=== PATIENT | female | born 1950 | race Caucasian/White ===

== ENCOUNTER 2016-05-15 18:15 | Inpatient (IN) | payer MEDICARE ==
[2016-05-15] MEDS ORDERED: SODIUM CHLORIDE 0.9% 1,000 ML IV STA ×2 (18:23)
[2016-05-15] MEDS ORDERED: SODIUM CHLORIDE 0.9% 500 ML IV STA (18:23)
[2016-05-15] MEDS ORDERED: ASPIRIN 325 MG TAB PO STA (18:45)
--- NOTE | 2016-05-15 18:47 | ED ---
General Adult HPI - General Chief complaint: Neuro Symptoms/Deficit Stated complaint: poss cva Time Seen by Provider: 05/15/16 18:23 Source: patient, RN notes reviewed, old records reviewed Mode of arrival: ambulatory Limitations: no limitations - History of Present Illness Initial comments: This is a 66-year-old female here for evaluation of possible CVA versus TIA. Patient has medical history consistent for backtracks, no prior history of known CVA. Patient states prior to arrival she had onset of right-sided slurred speech and right arm weakness that did resolve was about 2 hours prior to arrival. Symptoms did resolve after and did not last for to long. Patient denies any trauma, no fevers. No other neurological complaints - Related Data Home Medications Medication Instructions Recorded Confirmed Acetaminophen-Codeine 300-30mg 1 tab PO Q4-6H PRN 05/15/16 05/15/16 [Tylenol w/codeine #3] Ascorbic Acid [Vitamin C] 500 mg PO DAILY 05/15/16 05/15/16 Calcium Carbonate/Vitamin D3 1 tab PO BID 05/15/16 05/15/16 [Calcium 500-Vit D3 600 Tablet] Clindamycin Topical Soln 1 applic TOPICAL BID PRN 05/15/16 05/15/16 [Cleocin-T Topical Soln] DULoxetine HCL [Cymbalta] 60 mg PO DAILY 05/15/16 05/15/16 Fluocinonide 0.05% [Lidex 0.05% 1 applic TOPICAL DAILY PRN 05/15/16 05/15/16 cream] HYDROcodone/APAP 5-325MG [[place] 1 tab PO Q6H PRN 05/15/16 05/15/16 5-325] Insulin Glargine,Hum.rec.anlog 72 unit SQ HS 05/15/16 05/15/16 [Lantus Solostar] Insulin Lispro [humaLOG Kwikpen] 10 unit SQ AC-TID 05/15/16 05/15/16 LORazepam [Ativan] 0.5 mg PO TID PRN 05/15/16 05/15/16 Lisinopril [Zestril] 20 mg PO BID 05/15/16 05/15/16 Multivitamins, Thera [Multivitamin] 1 tab PO DAILY 05/15/16 05/15/16 [place]-3 Fatty Acids [[place]-3] 1,000 mg PO DAILY 05/15/16 05/15/16 Zolpidem Tartrate [Ambien Cr] 12.5 mg PO HS PRN 05/15/16 05/15/16 metFORMIN HCL [Glucophage] 500 mg PO BID 05/15/16 05/15/16 Non-Formulary Drug [Non Formulary 1,700 units IV WEEKLY PRN 05/17/16 05/17/16 Drug] Previous Rx's Medication Instructions Recorded Aspirin [Adult Low Dose Aspirin EC] 81 mg PO DAILY #90 tablet. 05/18/16 Allergies Allergy/AdvReac Type Severity Reaction Status Date / Time amlodipine besylate Allergy Unknown Verified 05/15/16 18:28 [From Norvasc] erythromycin base Allergy Unknown Verified 05/15/16 18:28 guaifenesin Allergy Unknown Verified 05/15/16 18:28 latex Allergy Unknown Verified 05/15/16 18:28 levofloxacin [From Levaquin] Allergy Unknown Verified 05/15/16 18:28 Review of Systems ROS Statement: Those systems with pertinent positive or pertinent negative responses have been documented in the HPI. ROS Other: All systems not noted in ROS Statement are negative. Past Medical History Past Medical History: Cancer, Diabetes Mellitus, Hypertension Additional Past Medical History / Comment(s): prurigo nodularus, skin cancer, Factor X History of Any Multi-Drug Resistant Organisms: None Reported Past Surgical History: Hysterectomy Additional Past Surgical History / Comment(s): power port Past Psychological History: Anxiety, Depression Smoking Status: Never smoker Past Alcohol Use History: None Reported Past Drug Use History: None Reported General Exam - General Exam Comments Initial Comments: NIH of 0 Limitations: no limitations General appearance: alert, in no apparent distress Head exam: Present: atraumatic, normocephalic, normal inspection Eye exam: Present: normal appearance, PERRL, EOMI. Absent: scleral icterus, conjunctival injection, periorbital swelling ENT exam: Present: normal exam, mucous membranes moist Neck exam: Present: normal inspection. Absent: tenderness, meningismus, lymphadenopathy Respiratory exam: Present: normal lung sounds bilaterally. Absent: respiratory distress, wheezes, rales, rhonchi, stridor Cardiovascular Exam: Present: regular rate, normal rhythm, normal heart sounds. Absent: systolic murmur, diastolic murmur, rubs, gallop, clicks GI/Abdominal exam: Present: soft, normal bowel sounds. Absent: distended, tenderness, guarding, rebound, rigid Extremities exam: Present: normal inspection, full ROM, normal capillary refill. Absent: tenderness, pedal edema, joint swelling, calf tenderness Back exam: Present: normal inspection Neurological exam: Present: alert, oriented X3, CN II-XII intact Psychiatric exam: Present: normal affect, normal mood Skin exam: Present: warm, dry, intact, normal color. 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 Patient be admitted for neurological monitoring. - Lab Data Result diagrams: 05/17/16 06:13 05/17/16 06:10 - Radiology Data Radiology results: report reviewed (CT brain negative for acute disease, chest x -ray 2 view negative for acute disease), image reviewed Disposition Clinical Impression: Cerebrovascular accident, Transient cerebral ischemia Disposition: ADMITTED IP TO THIS [facility] Condition: Good
[2016-05-15 19:08] LABS: Basophils # (A) 0.1 k/uL (0-0.2); Basophils % (A) 1 %; CH 29.8; CHCM 32.9; Eosinophils # (A) 0.1 k/uL (0-0.7); Eosinophils % (A) 1 %; HCT 43.8 % (34.0-46.0); HDW 2.45; HGB 13.7 gm/dL (11.4-16.0); Luc # (Auto) 0.17; Luc % (Auto) 2; Lymphocytes # (A) 2.6 k/uL (1.0-4.8); Lymphocytes % (A) 29 %; MCH 28.6 pg (25.0-35.0); MCHC 31.4 g/dL (31.0-37.0); MCV 91.2 fL (80.0-100.0); Mean Platelet Volume 7.7; Monocytes # (A) 0.6 k/uL (0-1.0); Monocytes % (A) 7 %; Neutrophils # (A) 5.6 k/uL (1.3-7.7); Neutrophils % (A) 61 %; RDW 13.4 % (11.5-15.5); WBC 9.2 k/uL (3.8-10.6); WBC (Perox) 8.84
[2016-05-15 19:17] LABS: ALT 26 U/L (9-52); AST 27 U/L (14-36); Alkaline Phosphatase 79 U/L (38-126); Anion Gap 12 mmol/L; Blood Urea Nitrogen 16 mg/dL (7-17); Carbon Dioxide 27 mmol/L (22-30); Chloride 101 mmol/L (98-107); Glucose 84 mg/dL (74-99); Non-African American GFR(MDRD) >60 (>60 ml/min/1.73 sqM); Potassium 4.5 mmol/L (3.5-5.1); Sodium 140 mmol/L (137-145); Total Bilirubin 0.4 mg/dL (0.2-1.3); Total Protein 7.5 g/dL (6.3-8.2)
--- NOTE | 2016-05-15 19:17 | CT ---
EXAMINATION TYPE: CT brain wo con DATE OF EXAM: 05/15/2016 7:09 PM COMPARISON: NONE HISTORY: 3 episodes of right sided weakness and slurred speech since last night. CT DLP: 742.7 mGycm Automated exposure control for dose reduction was used. FINDINGS: There is mild cerebral cortical atrophy. There is no mass effect nor midline shift. There is no sign of intracranial hemorrhage. The calvarium is intact. IMPRESSION: Mild atrophy. No acute intracranial abnormality.
--- NOTE | 2016-05-15 19:18 | XR ---
EXAMINATION TYPE: XR chest 2V DATE OF EXAM: 05/15/2016 7:13 PM COMPARISON: 01/03/2015 HISTORY: Slurred speech TECHNIQUE: Frontal and lateral views of the chest are obtained. FINDINGS: Heart and mediastinum are normal. Lungs are clear. Costophrenic angles are clear. There ar e no hilar masses. There is a right central venous catheter with tip in the superior vena cava. IMPRESSION: Normal chest. No change.
[2016-05-15 19:19] LABS: INR 1.2 (<1.1); Partial Thromboplastin Time 22.3 sec (22.0-30.0); Prothrombin Time 12.1 sec (9.0-12.0)
[2016-05-15 19:58] LABS: Glucose,Whole Blood 47 mg/dL (75-99)
[2016-05-15 20:23] LABS: Troponin I 0.013 ng/mL (0.000-0.034)
[2016-05-15 20:24] LABS: Creatine Kinase MB 2.4 ng/mL (0.0-2.4)
[2016-05-15 22:11] LABS: Glucose,Whole Blood 146 mg/dL (75-99)
[2016-05-15 23:23] VITALS: BMI 30.1
[2016-05-16] MEDS: SODIUM CHLORIDE 0.9% 1,000 ML IV SCH ×2 (02:02→06:59)
[2016-05-16] MEDS: LORazepam 1 MG TAB PO PRN (02:02)
[2016-05-16 06:41] LABS: Glucose,Whole Blood 117 mg/dL (75-99)
[2016-05-16] MEDS: INSULIN LISPRO (humaLOG) 300 UNIT/3 ML VIAL SQ SCH ×5 (06:46→21:33)
--- NOTE | 2016-05-16 08:30 | US ---
EXAMINATION TYPE: US carotid duplex BILAT DATE OF EXAM: 05/16/2016 7:58 AM COMPARISON: NONE CLINICAL HISTORY: Syncope with fall. EXAM MEASUREMENTS: RIGHT: Peak Systolic Velocity (PSV) cm/sec ----- Right CCA: 77.5 ----- Right ICA: 67.2 ----- Right ECA: 72.3 ICA/CCA ratio: 0.9 RIGHT: End Diastole cm/sec ----- Right CCA: 16.7 ----- Right ICA: 24.5 ----- Right ECA: 7.6 LEFT: Peak Systolic Velocity (PSV) cm/sec ----- Left CCA: 65.8 ----- Left ICA: 96.9 ----- Left ECA: 64.7 ICA/CCA ratio: 1.5 LEFT: End Diastole cm/sec ----- Left CCA: 18.6 ----- Left ICA: 33.5 ----- Left ECA: 13.1 VERTEBRALS (direction of flow): Right Vertebral: 52.9 Left Vertebral: 35.1 IMPRESSION: No stenosis detected. No calcified plaque seen. Criteria for Assigning % of Stenosis / Diameter reduction (Estimation based on the indirect measurements of the internal carotid artery velocities (ICA PSV). 1. Normal (no stenosis)=ICA PSV < 125 cm/s: ratio < 2.0: ICA EDV<40 cm/s. 2. Less than 50% stenosis=ICA PSV < 125 cm/s: ratio < 2.0: ICA EDV<40 cm/s. 3. 50 to 69% stenosis=ICA PSV of 125 to 230 cm/s: ration 2.0 ? 4.0: ICA EDV 40-100 cm/s. 4. Greater than 70% stenosis to near occlusion= ICA PSV > 230 cm/s: ratio > 4.0: ICA EDV > 100 cm/s. 5. Near occlusion= ICA PSV velocities may be low or undetectable: variable ratio and ICA EDV. 6. Total occlusion=unable to detect flow.
[2016-05-16] MEDS ORDERED: NON-FORMULARY DRUG (Clindamycin Topical Soln 1 APPLIC) TOPICAL PRN (09:34)
[2016-05-16] MEDS ORDERED: BETAMETHASONE DIPROPIONATE 0.05% CREAM 15 GM TUBE TOPICAL PRN (09:34)
[2016-05-16] MEDS: LISINOPRIL 10 MG TAB PO SCH ×2 (10:14→22:48)
[2016-05-16] MEDS ORDERED: Acetaminophen-Codeine 300-30mg TAB PO PRN ×2 (10:57→14:10)
--- NOTE | 2016-05-16 11:18 | ECHOF ---
Referral Reason:Thrombus MEASUREMENTS -------- HEIGHT: 160.0 cm WEIGHT: 80.3 kg BP: 164/81 IVSd: 1.2 cm (0.6 - 1.1) LVIDd: 4.2 cm (3.9 - 5.3) LVPWd: 1.2 cm (0.6 - 1.1) IVSs: 1.4 cm LVIDs: 3.7 cm LVPWs: 1.3 cm LA Diam: 3.9 cm (2.7 - 3.8) LAESV Index (A-L): 28.91 ml/m Ao Diam: 2.8 cm (2.0 - 3.7) AV Cusp: 1.7 cm (1.5 - 2.6) LA Diam: 4.2 cm (2.7 - 3.8) MV EXCURSION: 13.883 mm (> 18.000) MV EF SLOPE: 63 mm/s (70 - 150) MV E Karl: 0.45 m/s MV DecT: 323 ms MV A Karl: 0.85 m/s MV E/A Ratio: 0.53 RAP: 5.00 mmHg RVSP: 24.55 mmHg FINDINGS -------- Sinus rhythm. This was a technically good study. There is mild concentric left ventricular hypertrophy. Overall left ventricular systolic function is normal with, an EF between 55 - 60 %. The right ventricle is normal in size. Normal LA size by volume 22+/-6 ml/m2. The right atrial size is normal. There is mild aortic valve sclerosis. There is no evidence of aortic regurgitation. Mild mitral annular calcification present. Mild mitral regurgitation is present. Mild tricuspid regurgitation present. There is no evidence of pulmonary hypertension. The right ventricular systolic pressure, as measured by Doppler, is 24.55mmHg. There is no pulmonic regurgitation present. The aortic root size is normal. There is no pericardial effusion. CONCLUSIONS -------- 1. There is mild concentric left ventricular hypertrophy. 2. Overall left ventricular systolic function is normal with, an EF between 55 - 60 %. 3. There is mild aortic valve sclerosis. 4. Mild mitral annular calcification present. 5. Mild mitral regurgitation is present. 6. Mild tricuspid regurgitation present. 7. There is no evidence of pulmonary hypertension. 8. The right ventricular systolic pressure, as measured by Doppler, is 24.55mmHg. [employer] SECRETARY: Sylvia Stevens RDCS
[2016-05-16 12:04] LABS: Glucose,Whole Blood 295 mg/dL (75-99)
[2016-05-16 12:28] LABS: Hemoglobin A1C 6.8 % (4.2-6.1)
[2016-05-16] MEDS: DULoxetine HCL 60 MG CAPSULE.DR PO SCH (15:37)
[2016-05-16 16:43] LABS: Glucose,Whole Blood 174 mg/dL (75-99)
[2016-05-16] MEDS ORDERED: ASPIRIN 325 MG TAB PO SCH (18:46)
--- NOTE | 2016-05-16 19:33 | P.HPIM ---
History of Present Illness H&P Date: 05/16/16 Chief Complaint: slurred speech 66-year-old with history of diabetes mellitus type 2 currently on insulin therapy, hypertension is admitted to the hospital with complains of multiple episodes of slurred speech and right lower extremity weakness. Patient initially had a episode for 48 hours ago that lasted less than 2 minutes, attribute it to effect of Ambien at that time. Patient however had 2 episodes on the day of the admission the lasted less than 5 minutes. Patient's symptoms were right lower extremity weakness and slurred speech. Patient was accompanied by her . Patient denies having any history of strokes in the past. 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 denies having any headaches, change in vision, weakness or numbness. Patient was given a dose of aspirin. And was admitted to the hospital for ongoing care. Initial EKG did not reveal any atrial fibrillation. Review of Systems All systems: negative (Noted in HPI) Past Medical History Past Medical History: Cancer, Diabetes Mellitus, Hypertension Additional Past Medical History / Comment(s): prurigo nodularus, skin cancer, Factor X History of Any Multi-Drug Resistant Organisms: None Reported Past Surgical History: Hysterectomy Additional Past Surgical History / Comment(s): power port Past Psychological History: Anxiety, Depression Smoking Status: Never smoker Past Alcohol Use History: None Reported Past Drug Use History: None Reported Medications and Allergies Home Medications Medication Instructions Recorded Confirmed Type Acetaminophen-Codeine 300-30mg 1 tab PO Q4-6H PRN 05/15/16 05/15/16 History [Tylenol #3] Ascorbic Acid [Vitamin C] 500 mg PO DAILY 05/15/16 05/15/16 History Calcium Carbonate/Vitamin D3 1 tab PO BID 05/15/16 05/15/16 History [Calcium 500-Vit D3 600 Tablet] Clindamycin Topical Soln 1 applic TOPICAL BID PRN 05/15/16 05/15/16 History [Cleocin-T Topical Soln] DULoxetine HCL [Cymbalta] 60 mg PO DAILY 05/15/16 05/15/16 History Fluocinonide 0.05% [Lidex 0.05% 1 applic TOPICAL DAILY PRN 05/15/16 05/15/16 History cream] HYDROcodone/APAP 5-325MG [[place] 1 tab PO Q6H PRN 05/15/16 05/15/16 History 5-325] Insulin Glargine,Hum.rec.anlog 72 unit SQ HS 05/15/16 05/15/16 History [Lantus Solostar] Insulin Lispro [humaLOG Kwikpen] 10 unit SQ AC-TID 05/15/16 05/15/16 History LORazepam [Ativan] 0.5 mg PO TID PRN 05/15/16 05/15/16 History Lisinopril [Zestril] 20 mg PO BID 05/15/16 05/15/16 History Multivitamins, Thera [Multivitamin] 1 tab PO DAILY 05/15/16 05/15/16 History [place]-3 Fatty Acids [[place]-3] 1,000 mg PO DAILY 05/15/16 05/15/16 History Zolpidem Tartrate [Ambien Cr] 12.5 mg PO HS PRN 05/15/16 05/15/16 History metFORMIN HCL [Glucophage] 500 mg PO BID 05/15/16 05/15/16 History Allergies Allergy/AdvReac Type Severity Reaction Status Date / Time amlodipine besylate Allergy Unknown Verified 05/15/16 18:28 [From Norvasc] erythromycin base Allergy Unknown Verified 05/15/16 18:28 guaifenesin Allergy Unknown Verified 05/15/16 18:28 latex Allergy Unknown Verified 05/15/16 18:28 levofloxacin [From Levaquin] Allergy Unknown Verified 05/15/16 18:28 Physical Exam Vitals: Vital Signs Temp Pulse Resp BP BP Pulse Ox 05/16/16 09:45 97.9 F 72 18 178/80 99 05/16/16 08:00 97.9 F 72 18 188/80 99 05/16/16 07:45 97.9 F 72 18 188/80 99 05/16/16 04:00 98.0 F 76 18 164/81 96 05/16/16 00:00 97.6 F 81 18 165/87 98 05/15/16 21:45 97.0 F L 90 18 160/75 99 05/15/16 20:45 97.1 F L 94 18 164/80 99 05/15/16 19:45 97.7 F 90 18 168/90 97 05/15/16 19:32 97 F L 94 18 210/108 99 Intake and Output 05/15/16 05/16/16 05/16/16 22:59 06:59 14:59 Intake Total 600 720 236 Output Total 850 450 Balance 600 -130 -214 Intake: Oral 600 720 236 Output: Urine 850 450 Other: # Voids 2 2 Weight 77.11 kg 80.6 kg Gen. appearance alert oriented 3 in no distress Lungs good air entry clear to auscultation no rhonchi or wheezing appreciated Heart regular rate and rhythm no murmurs appreciated Abdomen is soft nontender no organomegaly Neck is supple no JVD no bruits appreciated Neuro cranial nerves to till 12 grossly intact extraocular movements intact, pupils are equal round and reactive light and accommodation Motor exam strength is 5 out of 5 in all 4 extremities deep tendon reflexes are within normal limits Sensory exam no deficits appreciated. No dysdiadochokinesia is noted Romberg's is negative Results CBC & Chem 7: 05/15/16 18:45 05/15/16 18:45 Labs: Abnormal Lab Results - Last 24 Hours (Table) 05/15/16 05/15/16 05/16/16 Range/Units 19:54 22:05 06:39 POC Glucose (mg/dL) 47 L 146 H 117 H (75-99) mg/dL 05/16/16 Range/Units 12:03 POC Glucose (mg/dL) 295 H (75-99) mg/dL Thrombosis Risk Factor Assmnt - Choose All That Apply Each Risk Factor Represents 2 Points: Age 61-74 years Thrombosis Risk Factor Assessment Total Risk Factor Score: 2 Thrombosis Risk Factor Assessment Level: Low Risk Assessment and Plan Plan: #1 acute CVA likely a transient ischemic attack in the left MCA territory. #2 history of factor X deficiency #3 history of hypertension #4 diabetes mellitus type 2 that is not well-controlled #5 dyslipidemia Plan ABCD 2 score is high patient will be admitted for at least 48 hours as that is the highest risk of a stroke in this patient who said multiple TIAs. There is no need to treat blood pressure aggressively. Aspirin will be discontinued with the patient's history of factor X deficiency. I think the risks outweigh the benefits in this case. Carotid Doppler studies noted. Echo did not reveal any abnormalities EF is 55% no intracardiac thrombus is appreciated DVT prophylaxis with SCDs. A neurology consultation will also be obtained. Neuro checks. Computed tomography scan of the head was negative initially. Telemetry monitoring to rule out underlying atrial fibrillation.
[2016-05-16 20:20] LABS: Glucose,Whole Blood 163 mg/dL (75-99)
[2016-05-16] MEDS ORDERED: LISINOPRIL 20 MG TAB PO SCH (21:00)
[2016-05-16] MEDS: CALCIUM CARB-VIT D 500MG-200UN 1 EACH TAB PO SCH (21:33)
[2016-05-16] MEDS: INSULIN GLARGINE 100 UNIT/ML 10 ML VIAL SQ SCH (21:40)
[2016-05-16] MEDS: HYDROcodone/APAP 5-325MG 1 EACH TAB PO PRN (21:42)
--- NOTE | 2016-05-16 22:17 | HP ---
DATE OF ADMISSION: 05/15/2016 66 -year-old female came in with multiple symptoms including mostly tingling and numbness in the right lower limb, and numbness in the right lower limb, patient has total of three episodes, first and second, episodes were tingling and numbness of the right lower limb. The patient did take Ambien. Post Ambien patient, one and one half hours after Ambien, the patient felt some better and there was numb in the right leg, lasted for 2 minutes and resolved completely. Same thing happened a day later and yesterday she had another episode of slurred speech and weakness in the right arm which also lasted for 2 minutes which completely resolved. The patient denied any fever or chills. The patient denied any cough, runny nose headache, migraine-like, migraines, seizures like activity. The patient denied any nausea, vomiting. Patient denied any fever, chills, diarrhea, dysuria. REVIEW OF SYSTEMS: REVIEW OF SYSTEMS: CONSTITUTIONAL: No fever, no malaise, no fatigue. HEENT: No recent visual problems or hearing problems. Denied any sore throat. CARDIOVASCULAR: No chest pain, orthopnea, PND, no palpitations, no syncope. PULMONARY: No shortness of breath, no cough, no hemoptysis. GASTROINTESTINAL: No diarrhea, no nausea, no vomiting, no abdominal pain. Normoactive bowel sounds. NEUROLOGICAL: As described in history of present illness. HEMATOLOGICAL: Denies any bleeding or petechiae. GENITOURINARY: Denies any burning micturition, frequency, or urgency. MUSCULOSKELETAL/RHEUMATOLOGICAL: Denies any joint pain, swelling, or any muscle pain. ENDOCRINE: Denies any polyuria or polydipsia. The rest of the 14 point review of systems is negative. Home medications: 1. ( ). 2. ( ). 3. Calcium carbonate. 4. ( ). 5. ( ). 6. Duloxetine. 7. Hydrocodone acetaminophen. 8. ( ). 9. ( ). 10. ( ). 11. Lispro 10 units ( ). 12. Lorazepam 0.5 p.o. t.i.d. 13. Lisinopril 20 mg p.o. ( ). 14. Multivitamin supplementation. 15. Zolpidem. 16. Metformin. 17. [place]-3 fatty acids. ALLERGIES: AMLODIPINE, ERYTHROMYCIN, GUAIFENESEN, LATEX AND LEVOFLOXACIN. PAST MEDICAL HISTORY: Significant for diabetes mellitus, hypertension, skin cancer, factor X deficiency because of which cannot take aspirin and she wanted me to talk to the oncologist about starting her on aspirin. The patient, although, was given aspirin in the ER. I believe patient declined that aspirin. PAST SURGICAL HISTORY: Hysterectomy, anxiety, depression. SOCIAL HISTORY: Denied any smoking, alcohol abuse or any drug abuse. FAMILY HISTORY: Significant for hypertension, diabetes mellitus in multiple family members. PHYSICAL EXAMINATION: VITAL SIGNS: Temperature 96.9, pulse of 94, respiratory rate 20, blood pressure 169/90, saturating at 97% on room air. PHYSICAL EXAMINATION: GENERAL: The patient is alert and oriented x3, not in any acute distress. Well developed, well nourished. HEENT: Pupils are round and equally reacting to light. EOMI. No scleral icterus. No conjunctival pallor. Normocephalic, atraumatic. No pharyngeal erythema. No thyromegaly. CARDIOVASCULAR: S1 and S2 present. No murmurs, rubs, or gallops. PULMONARY: Chest is clear to auscultation, no wheezing or crackles. ABDOMEN: Soft, nontender, nondistended, normoactive bowel sounds. No palpable organomegaly. MUSCULOSKELETAL: No joint swelling or deformity. EXTREMITIES: No cyanosis, clubbing, or pedal edema. NEUROLOGICAL: Gross neurological examination did not reveal any focal deficits. SKIN: No rashes. LABORATORY DATA: CBC essentially within normal limits. EKG did not show any significant abnormalities. CT of the head did not show any acute hemorrhage. ASSESSMENT AND PLAN: 1. Patient nonspecific symptoms of tingling and numbness. I cannot completely rule out transient ischemic attack. Patient has multitude of symptoms that are not really consistent with transient ischemic attack although there is no way we can prove it is not a transient ischemic attack. We will get neurology to evaluate the patient unless neurology believes strongly that this patient actually had a transient ischemic attack, patient will not be started on aspirin for discharge. I want to get neurology opinion, I will talk to the tin assorter regarding aspirin or any kind of antiplatelet therapy because of her Factor X deficiency. 2. Diabetes mellitus, we will obtain hemoglobin A1C and the patient can be restarted on home dose along with sliding scale insulin, ( ) as needed. 3. Hypertension. We will allow some ( ) hypertension, because of possibility of transient ischemic attack. We will cut down the dose of Lisinopril. 4. Depression, continue with duloxetine. Patient mostly appears like an anxious person.
[2016-05-17 06:08] LABS: Glucose,Whole Blood 73 mg/dL (75-99)
[2016-05-17 06:27] LABS: Basophils # (A) 0.1 k/uL (0-0.2); Basophils % (A) 1 %; CHCM 32.3; Eosinophils # (A) 0.2 k/uL (0-0.7); Eosinophils % (A) 2 %; HCT 42.6 % (34.0-46.0); HDW 2.43; HGB 13.7 gm/dL (11.4-16.0); Luc # (Auto) 0.22; Luc % (Auto) 3; Lymphocytes % (A) 36 %; MCH 28.8 pg (25.0-35.0); MCV 89.9 fL (80.0-100.0); Mean Platelet Volume 5.9; Monocytes # (A) 0.4 k/uL (0-1.0); Monocytes % (A) 5 %; Neutrophils # (A) 4.6 k/uL (1.3-7.7); Neutrophils % (A) 54 %; RBC 4.74 m/uL (3.80-5.40); WBC 8.4 k/uL (3.8-10.6); WBC (Perox) 8.49
[2016-05-17 06:38] LABS: ALT 30 U/L (9-52); AST 23 U/L (14-36); Alkaline Phosphatase 76 U/L (38-126); Anion Gap 9 mmol/L; Blood Urea Nitrogen 13 mg/dL (7-17); Calcium 10.1 mg/dL (8.4-10.2); Carbon Dioxide 31 mmol/L (22-30); Chloride 103 mmol/L (98-107); Glucose 68 mg/dL (74-99); Non-African American GFR(MDRD) >60 (>60 ml/min/1.73 sqM); Potassium 4.6 mmol/L (3.5-5.1); Sodium 143 mmol/L (137-145); Total Bilirubin 0.5 mg/dL (0.2-1.3)
[2016-05-17] MEDS: HYDROcodone/APAP 5-325MG 1 EACH TAB PO PRN ×2 (06:47→15:44)
[2016-05-17] MEDS: INSULIN LISPRO (humaLOG) 300 UNIT/3 ML VIAL SQ SCH ×7 (07:31→21:14)
[2016-05-17] MEDS: CALCIUM CARB-VIT D 500MG-200UN 1 EACH TAB PO SCH ×2 (07:56→21:15)
[2016-05-17] MEDS: LISINOPRIL 10 MG TAB PO SCH ×2 (07:56→21:15)
[2016-05-17] MEDS: DULoxetine HCL 60 MG CAPSULE.DR PO SCH (07:56)
--- NOTE | 2016-05-17 10:24 | MR ---
EXAMINATION TYPE: MR stat inpatient brain wo con DATE OF EXAM: 05/17/2016 10:09 AM COMPARISON: CT brain 05/15/2016 HISTORY: TIA T1-weighted sagittal, T2, FLAIR, and diffusion axial, and T2 coronal coronal views of the brain are s ubmitted. There is no evidence of acute ischemia. The ventricles, basal cisterns, and sulci overlying the conv exities are consistent with the patient's age. There is no mass effect. Abnormal signal within the right thalamus and basal ganglia suggestive of remote lacunar infarction. Confluent and numerous focal areas of abnormal signal in the deep white matter and periventricular wh ite matter are nonspecific but most likely in the basis of remote microvascular ischemia. Changes of mild chronic sinusitis noted. IMPRESSION: 1. No acute intracranial process. 2. Remote ischemic change
--- NOTE | 2016-05-17 11:09 | P.CNNES ---
History of Present Illness Consult date: 05/16/16 Reason for Consult: Patient with right sided weakness and TIA symptoms. History of Present Illness: This patient is a 66-year-old right-handed white female who was brought into the emergency room today for evaluation of right-sided weakness. Patient states that on Monday night at about 5 PM she noted that she was having some difficulty with right arm numbness. This was then followed by an episode of some slurred speech. The episode lasted several minutes and then quickly resolved. She was attributing some of the slurred speech to the possible sleeping pill that she normally takes at night. She is using Ambien CR at night and she thought this may have been the effect of this medication. The initial episode lasted only a few minutes. Apparently she had several other episodes lasting 1-2 minutes in duration which seem to come and go. She was noticing not only the slurring of her speech but right-sided weakness involving arm and leg. The patient decided to come to the emergency room today for further evaluation. 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 She is followed by a specialist and training assistant at the [facility] and sees her on a yearly basis. Apparently she is receiving factor X concentrate injections that she takes twice a week. This is to be used to prevent any bleeding episodes for her. She has had multiple hematomas over the last many years. 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 Her most recent hematoma involved her right arm. This was reviewed by her training assistant in the fall of last year and apparently she has been doing better since that episode. Patient states that she cannot take aspirin or nonsteroidals due to the factor X deficiency. She did undergo the computed tomography scan of the brain which was reported negative for any acute stroke or hemorrhage. Patient was admitted to the hospital for further stroke evaluation. She underwent a carotid Doppler today which fails to reveal any significant stenosis. No calcification was noted. Echocardiogram of the heart was also completed and reveals her ejection fraction to be 60%. As noted the patient cannot take any aspirin or aspirin products due to her factor X deficiency. This may need to be further evaluated by her training assistant at the [facility]. Given her history she is now admitted for possible acute left hemispheric TIA. We have recommended close monitoring of the patient. She does have history of underlying diabetes and we've recommended to have her hemoglobin A1c checked as well as a lipid profile for other causes of TIA for this patient. We will obtain an MRI of the brain to rule out any possibility of small lacunar stroke syndrome. Would also consider hematology consultation for this patient with a complex history of factor X deficiency. Her overall prognosis at this time remains very guarded. Review of Systems Constitutional: Denies chills, Denies fever Eyes: denies blurred vision, denies pain Ears, nose, mouth and throat: Denies headache, Denies sore throat Cardiovascular: Denies chest pain, Denies shortness of breath Respiratory: Denies cough Gastrointestinal: Denies abdominal pain, Denies diarrhea, Denies nausea, Denies vomiting Genitourinary: Denies dysuria, Denies hematuria Musculoskeletal: Denies myalgias Integumentary: Denies pruritus, Denies rash Neurological: Reports change in speech, Reports motor disturbance, Reports transient paralysis, Denies numbness, Denies weakness Psychiatric: Denies anxiety, Denies depression Endocrine: Denies fatigue, Denies weight change Past Medical History Past Medical History: Cancer, Diabetes Mellitus, Hypertension Additional Past Medical History / Comment(s): prurigo nodularus, skin cancer, Factor X History of Any Multi-Drug Resistant Organisms: None Reported Past Surgical History: Hysterectomy Additional Past Surgical History / Comment(s): power port Past Psychological History: Anxiety, Depression Smoking Status: Never smoker Past Alcohol Use History: None Reported Past Drug Use History: None Reported Medications and Allergies Home Medications Medication Instructions Recorded Confirmed Type Acetaminophen-Codeine 300-30mg 1 tab PO Q4-6H PRN 05/15/16 05/15/16 History [Tylenol #3] Ascorbic Acid [Vitamin C] 500 mg PO DAILY 05/15/16 05/15/16 History Calcium Carbonate/Vitamin D3 1 tab PO BID 05/15/16 05/15/16 History [Calcium 500-Vit D3 600 Tablet] Clindamycin Topical Soln 1 applic TOPICAL BID PRN 05/15/16 05/15/16 History [Cleocin-T Topical Soln] DULoxetine HCL [Cymbalta] 60 mg PO DAILY 05/15/16 05/15/16 History Fluocinonide 0.05% [Lidex 0.05% 1 applic TOPICAL DAILY PRN 05/15/16 05/15/16 History cream] HYDROcodone/APAP 5-325MG [[place] 1 tab PO Q6H PRN 05/15/16 05/15/16 History 5-325] Insulin Glargine,Hum.rec.anlog 72 unit SQ HS 05/15/16 05/15/16 History [Lantus Solostar] Insulin Lispro [humaLOG Kwikpen] 10 unit SQ AC-TID 05/15/16 05/15/16 History LORazepam [Ativan] 0.5 mg PO TID PRN 05/15/16 05/15/16 History Lisinopril [Zestril] 20 mg PO BID 05/15/16 05/15/16 History Multivitamins, Thera [Multivitamin] 1 tab PO DAILY 05/15/16 05/15/16 History Wildorado-3 Fatty Acids [Wildorado-3] 1,000 mg PO DAILY 05/15/16 05/15/16 History Zolpidem Tartrate [Ambien Cr] 12.5 mg PO HS PRN 05/15/16 05/15/16 History metFORMIN HCL [Glucophage] 500 mg PO BID 05/15/16 05/15/16 History Allergies Allergy/AdvReac Type Severity Reaction Status Date / Time amlodipine besylate Allergy Unknown Verified 05/15/16 18:28 [From Norvasc] erythromycin base Allergy Unknown Verified 05/15/16 18:28 guaifenesin Allergy Unknown Verified 05/15/16 18:28 latex Allergy Unknown Verified 05/15/16 18:28 levofloxacin [From Levaquin] Allergy Unknown Verified 05/15/16 18:28 Physical Examination - Vital Signs Vital Signs: Vital Signs Temp Pulse Resp BP BP Pulse Ox 05/16/16 13:35 98.2 F 82 18 150/80 98 05/16/16 12:00 98.2 F 82 18 156/87 98 05/16/16 11:45 98.2 F 82 18 156/87 98 05/16/16 09:45 97.9 F 72 18 178/80 99 05/16/16 08:00 97.9 F 72 18 188/80 99 05/16/16 07:45 97.9 F 72 18 188/80 99 05/16/16 04:00 98.0 F 76 18 164/81 96 05/16/16 00:00 97.6 F 81 18 165/87 98 05/15/16 21:45 97.0 F L 90 18 160/75 99 05/15/16 20:45 97.1 F L 94 18 164/80 99 05/15/16 19:45 97.7 F 90 18 168/90 97 05/15/16 19:32 97 F L 94 18 210/108 99 Intake and Output 05/15/16 05/16/16 05/16/16 22:59 06:59 14:59 Intake Total 600 720 416 Output Total 850 450 Balance 600 -130 -34 Intake: Oral 600 720 416 Output: Urine 850 450 Other: # Voids 2 2 Weight 77.11 kg 80.6 kg - Constitutional General appearance: average body habitus, cooperative - EENT EENT: PERRL, mucous membranes moist - Respiratory Respiratory: lungs clear, normal breath sounds - Cardiovascular Cardiovascular: regular rate, normal S1, normal S2 Extremities: no peripheral edema bilaterally - Gastrointestinal Gastrointestinal: normoactive bowel sounds - Integumentary Integumentary: normal - Neurologic Cranial nerve examination: PERRL, EOMI, VFF, V1/V2/V3 grossly intact, face symmetric, tongue midline, intact gag reflex, intact corneal reflex, normal palatal elevation Speech examination: intact Sensorimotor examination: intact Detailed motor examination: grossly full strength in all extremities Detailed sensory examination: intact Reflex and gait examination: intact Reflexes: 1+: ankle, bicep, knee, tricep - Musculoskeletal Musculoskeletal: no pain - Psychiatric Psychiatric: mood/affect appropriate, cooperative Results - Laboratory Findings CBC and BMP: 05/15/16 18:45 05/15/16 18:45 Abnormal Lab Findings: Abnormal Labs 05/15/16 05/15/16 05/16/16 19:54 22:05 06:10 POC Glucose (mg/dL) 47 L 146 H Hemoglobin A1c 6.8 H 05/16/16 05/16/16 06:39 12:03 POC Glucose (mg/dL) 117 H 295 H Hemoglobin A1c Assessment and Plan (1) Factor X deficiency Status: Acute Code(s): D68.2 - HEREDITARY DEFICIENCY OF OTHER CLOTTING FACTORS (2) Diabetes mellitus Status: Acute Code(s): E11.9 - TYPE 2 DIABETES MELLITUS WITHOUT COMPLICATIONS (3) Transient cerebral ischemia Status: Acute Code(s): G45.9 - TRANSIENT CEREBRAL ISCHEMIC ATTACK, UNSPECIFIED Plan: This patient is a 66-year-old female admitted to Hospital with recurrent episodes of right-sided arm and leg weakness as well as slurred speech. Her clinical history suggests recurrent TIA. She underwent initial evaluation emergency room and was admitted to the hospital. She does have history of underlying factor X deficiency and cannot take aspirin or aspirin products. She has been using factor X concentrate which he takes twice a week to report for the last 15 years. She is followed at the hematology clinic at the [facility]. She is seen there twice a year. She was recently evaluated for bleeding in her right arm and tendinitis. This was in the fall of last year and her exam is results were fair and she was discharged. Patient has had some episodes of slurred speech. This has been recurrent on several occasions since admission. Her carotid Doppler ultrasound was reviewed and is negative for any carotid artery stenosis. Echocardiogram of the heart reveals ejection fraction to be 60%. We have recommended an MRI of the brain to further evaluate for possibility of lacunar stroke. She is not a candidate for aspirin or anticoagulation given her factor X deficiency state. We would recommend hematology consultation for further evaluation. We will obtain the results of her MRI and we'll give further recommendations at that time. Overall prognosis at this time remains very guarded. Time with Patient: Greater than 30
[2016-05-17 11:45] LABS: Glucose,Whole Blood 233 mg/dL (75-99)
--- NOTE | 2016-05-17 11:59 | P.PN ---
Subjective Principal diagnosis: Patient ambulate freely in the room states she is comfortable at this time. 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 Dr. Duque has been consult neurology is on the case to Objective - Vital Signs Vital signs: Vital Signs Temp 98.8 F 05/17/16 09:00 Pulse 90 05/17/16 09:00 Resp 18 05/17/16 09:00 BP 158/84 05/17/16 09:00 Pulse Ox 98 05/17/16 09:00 Intake & Output 05/16/16 05/17/16 05/17/16 18:59 06:59 18:59 Intake Total 1616 120 Output Total 1000 2350 Balance 616 -2350 120 Weight 80.6 kg Intake: Intake, IV Titration 800 Amount Sodium Chloride 0.9% 1, 800 000 ml @ 100 mls/hr IV . Q10H QUIANA Rx#:[id number] Oral 816 120 Output: Urine 1000 2350 Other: # Voids 3 3 - Constitutional General appearance: Present: mild distress - EENT Eyes: Present: PERRLA Ears: bilateral: normal - Neck Neck: Present: normal ROM - Respiratory Respiratory: negative: CTA - Cardiovascular Rhythm: regular - Gastrointestinal General gastrointestinal: Present: soft - Integumentary Integumentary: Present: normal - Neurologic Neurologic: Present: CNII-XII intact - Musculoskeletal Musculoskeletal: Present: gait normal - Psychiatric Psychiatric: Present: A&O x's 3, appropriate affect, intact judgment & insight - Labs CBC & Chem 7: 05/17/16 06:13 05/17/16 06:10 Labs: Abnormal Lab Results - Last 24 Hours (Table) 05/16/16 05/16/16 05/16/16 Range/Units 06:10 12:03 16:42 Carbon Dioxide (22-30) mmol/L Glucose (74-99) mg/dL POC Glucose (mg/dL) 295 H 174 H (75-99) mg/dL Hemoglobin A1c 6.8 H (4.2-6.1) % 05/16/16 05/17/16 05/17/16 Range/Units 20:18 06:06 06:10 Carbon Dioxide 31 H (22-30) mmol/L Glucose 68 L (74-99) mg/dL POC Glucose (mg/dL) 163 H 73 L (75-99) mg/dL Hemoglobin A1c (4.2-6.1) % 05/17/16 Range/Units 11:44 Carbon Dioxide (22-30) mmol/L Glucose (74-99) mg/dL POC Glucose (mg/dL) 233 H (75-99) mg/dL Hemoglobin A1c (4.2-6.1) % - Imaging and Cardiology CT Scan - head: report reviewed MRI - head: report reviewed Assessment and Plan Plan: Assessment Transient ischemic attack Factor X deficiency Diabetes type 2 Hypertension Facial trauma secondary to syncopal episode Plan Continue consultation with neurology Consultation with hematology Dr. Duque Continue to monitor patient condition
[2016-05-17] MEDS: MULTIVITAMINS, THERA 1 EACH TAB PO SCH (12:37)
[2016-05-17] MEDS: ASCORBIC ACID 500 MG TAB PO SCH (12:37)
[2016-05-17] MEDS ORDERED: [UNRECOGNIZED DRUG - OTHER] IV PRN ×2 (16:42→16:57)
[2016-05-17 17:18] LABS: Glucose,Whole Blood 116 mg/dL (75-99)
--- NOTE | 2016-05-17 20:12 | P.PN ---
Subjective This patient is a 66-year-old right-handed white female who was admitted yesterday with symptoms of right-sided weakness and possible TIA. 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 She takes injections twice a week for treatment of this clotting factor deficiency. She is being followed closely at the [facility] with her primary urogynecology physician. The patient underwent a complete stroke evaluation for possible TIA versus stroke. She had MRI of the brain completed today which came back negative with no evidence of acute stroke. There was evidence of an old lacunar infarct in the right thalamus which is felt to be old. No other acute changes were noted. She underwent carotid Doppler ultrasound which came back negative for any evidence of carotid artery stenosis. She has been doing well today and is had no further recurrence of right-sided numbness or weakness. We have reviewed all of her test results with the patient and her at bedside today. All of their questions were answered. She did give us a contact number of her urogynecology physician at the [facility]. We did contact the 24- hour service but did not get a call back today. We would recommend the patient to discuss further management with her urogynecology physician. She is not a candidate for aspirin therapy given her factor X deficiency at this time. We would recommend she follow-up with her urogynecology physician once she is discharged from the hospital. The patient also underwent routine EEG which was reviewed today and is normal for her age. Her overall workup thus far has come back negative at this time. As mentioned she should follow-up with her urogynecology physician at the [facility] to see if there is any indication for aspirin therapy. At this time we will hold off and will await her primary urogynecology physician to make the decision. She continues to do well today. She has been up and ambulating without any difficulties. She may be considered for discharge home tomorrow. Objective - Vital Signs Vital signs: Vital Signs Temp 98.5 F 05/17/16 15:00 Pulse 89 05/17/16 15:00 Resp 15 05/17/16 15:00 BP 186/85 05/17/16 15:00 Pulse Ox 95 05/17/16 18:00 Intake & Output 05/17/16 05/17/16 05/18/16 06:59 18:59 06:59 Intake Total 120 Output Total 2350 Balance -2350 120 Weight 80.6 kg Intake: Oral 120 Output: Urine 2350 Other: Voiding Method Toilet # Voids 3 3 - Exam Physical examination: PHYSICAL EXAMINATION: Patient is resting comfortably in bed. VITAL SIGNS: Blood pressure is [158/84]. Heart rate is [90]. Respiration is [18] . Temperature is [98.8]. HEENT: Head is atraumatic, neck is supple, there were no carotid bruits. CHEST: Lungs are clear to auscultation and percussion. CARDIAC: S1, S2 normal rate and rhythm. There is no murmur. ABDOMEN: Soft and nontender. Bowel sounds are present. EXTREMITIES: There is no pedal edema. Peripheral pulses are present. Neurological examination: Patient has a nonfocal neurological examination today. - Labs CBC & Chem 7: 05/17/16 06:13 05/17/16 06:10 Labs: Abnormal Lab Results - Last 24 Hours (Table) 05/16/16 05/17/16 05/17/16 Range/Units 20:18 06:06 06:10 Carbon Dioxide 31 H (22-30) mmol/L Glucose 68 L (74-99) mg/dL POC Glucose (mg/dL) 163 H 73 L (75-99) mg/dL 05/17/16 05/17/16 Range/Units 11:44 17:15 Carbon Dioxide (22-30) mmol/L Glucose (74-99) mg/dL POC Glucose (mg/dL) 233 H 116 H (75-99) mg/dL Assessment and Plan (1) Factor X deficiency Status: Acute Code(s): D68.2 - HEREDITARY DEFICIENCY OF OTHER CLOTTING FACTORS (2) Diabetes mellitus Status: Acute Code(s): E11.9 - TYPE 2 DIABETES MELLITUS WITHOUT COMPLICATIONS (3) Transient cerebral ischemia Status: Acute Code(s): G45.9 - TRANSIENT CEREBRAL ISCHEMIC ATTACK, UNSPECIFIED Plan: This patient is a 66-year-old female admitted to Hospital with recurrent episodes of right-sided arm and leg weakness as well as slurred speech. Her clinical history suggests recurrent TIA. She underwent initial evaluation emergency room and was admitted to the hospital. She does have history of underlying factor X deficiency and cannot take aspirin or aspirin products. She has been using factor X concentrate which he takes twice a week to report for the last 15 years. She is followed at the hematology clinic at the [facility]. She is seen there twice a year. She was recently evaluated for bleeding in her right arm and tendinitis. This was in the fall of last year and her exam is results were fair and she was discharged. Patient has had some episodes of slurred speech. This has been recurrent on several occasions since admission. Her carotid Doppler ultrasound was reviewed and is negative for any carotid artery stenosis. Echocardiogram of the heart reveals ejection fraction to be 60%. We have recommended an MRI of the brain to further evaluate for possibility of lacunar stroke. She is not a candidate for aspirin or anticoagulation given her factor X deficiency state. We would recommend hematology consultation for further evaluation. We will obtain the results of her MRI and we'll give further recommendations at that time. The patient completed MRI of the brain today. The MRI study came back negative for any evidence of acute stroke. There was a remote right thalamic lacunar infarct noted which is old. The patient underwent carotid Doppler ultrasound as well as routine EEG both of these studies are normal. The patient would like to follow-up with her urogynecology physician at the [facility] for further management. She will have records sent to her as well. We did try to contact her today at the [facility] by the 24-hour service and she was unavailable at this time. We recommend the patient to follow-up with her urogynecology physician. Consideration as to whether she would be a candidate for very low-dose aspirin therapy. We will hold off on starting her on any aspirin without the consent of her urogynecology physician at the [facility]. Patient may be considered for discharge home tomorrow. We have consult dated hematology locally but the patient defers to her primary urogynecology physician at the [facility]. Her overall prognosis at this time remains very guarded.
[2016-05-17 21:04] LABS: Glucose,Whole Blood 160 mg/dL (75-99)
[2016-05-17] MEDS: INSULIN GLARGINE 100 UNIT/ML 10 ML VIAL SQ SCH (21:14)
[2016-05-17] MEDS: LORazepam 1 MG TAB PO PRN (21:14)
--- NOTE | 2016-05-17 22:09 | EEG ---
DATE OF SERVICE: 05/17/2016 INDICATIONS FOR EXAMINATION: This patient is a 66-year-old female with recurrent episodes of slurred speech and right-sided weakness. The patient being evaluated for a TIA. The patient has history of factor X deficiency. AGE: 66Y EEG FINDINGS: A routine 21-channel, awake digital EEG recording was accomplished utilizing the 10-20 international system with bipolar and referential montages. The background activity in the most alert resting state consists of a low to medium amplitude, fairly well-developed and well-sustained 7-8 Hz activity over the posterior head regions. This posterior rhythm attenuates to eye opening. There is a small amount of low amplitude 18-20 Hz beta activity seen maximally over the anterior head regions. Muscle and movement artifact was observed on a few occasions during the tracing. Hyperventilation was not performed. Photic stimulation at flash frequencies of 2-30 Hz produced a good symmetrical occipital driving response. No epileptiform discharges were seen. IMPRESSION: This EEG is within normal limits for the patient's age. The EEG failed to reveal any focal, lateralized or epileptiform abnormalities. Clinical correlation is recommended.
[2016-05-18 07:35] LABS: Glucose,Whole Blood 106 mg/dL (75-99)
[2016-05-18 07:44] VITALS: RESP 16; TEMP 98.1
[2016-05-18] MEDS: INSULIN LISPRO (humaLOG) 300 UNIT/3 ML VIAL SQ SCH ×6 (08:01→17:52)
[2016-05-18] MEDS: CALCIUM CARB-VIT D 500MG-200UN 1 EACH TAB PO SCH (08:02)
[2016-05-18] MEDS: LISINOPRIL 10 MG TAB PO SCH (08:02)
[2016-05-18] MEDS: DULoxetine HCL 60 MG CAPSULE.DR PO SCH (08:02)
[2016-05-18] MEDS: LORazepam 1 MG TAB PO PRN (09:40)
--- NOTE | 2016-05-18 11:51 | P.PN ---
Subjective Patient ambulating freely in the room to denies any discomfort at this time. No further neurologic symptoms for 45 hours. Patient stable for discharge awaiting consultation with her family and divorce legal assistant and Dr. Duque regarding aspirin use Objective - Vital Signs Vital signs: Vital Signs Temp 98.1 F 05/18/16 07:00 Pulse 89 05/18/16 08:00 Resp 16 05/18/16 08:00 BP 160/76 05/18/16 07:00 Pulse Ox 96 05/18/16 07:00 Intake & Output 05/17/16 05/18/16 05/18/16 18:59 06:59 18:59 Intake Total 120 120 Output Total 300 Balance 120 -300 120 Intake: Oral 120 120 Output: Urine 300 Other: Voiding Method Toilet Toilet Toilet # Voids 3 1 - Constitutional General appearance: Present: obese - EENT Eyes: Present: PERRLA Ears: bilateral: normal - Neck Neck: Present: normal ROM - Respiratory Respiratory: bilateral: CTA - Cardiovascular Rhythm: regular - Gastrointestinal General gastrointestinal: Present: soft - Integumentary Integumentary: Present: normal - Neurologic Neurologic: Present: CNII-XII intact - Musculoskeletal Musculoskeletal: Present: gait normal - Psychiatric Psychiatric: Present: A&O x's 3, appropriate affect, intact judgment & insight - Labs CBC & Chem 7: 05/17/16 06:13 05/17/16 06:10 Labs: Abnormal Lab Results - Last 24 Hours (Table) 05/17/16 05/17/16 05/18/16 Range/Units 17:15 20:48 07:34 POC Glucose (mg/dL) 116 H 160 H 106 H (75-99) mg/dL Assessment and Plan Plan: Assessment Transient ischemic attack Factor X deficiency Diabetes type 2 Hypertension Plan continue consultation with neurology states stable for discharge Consultation with Dr. Duque and her family and divorce legal assistant regarding use of aspirin Hopeful discharge today
[2016-05-18 11:56] LABS: Glucose,Whole Blood 114 mg/dL (75-99)
[2016-05-18] MEDS: MULTIVITAMINS, THERA 1 EACH TAB PO SCH (11:57)
[2016-05-18] MEDS: ASCORBIC ACID 500 MG TAB PO SCH (11:57)
[2016-05-18 15:12] VITALS: BP 165/81
[2016-05-18 16:11] VITALS: PULSE 89
--- NOTE | 2016-05-18 16:33 | P.DS ---
Providers Date of admission: 05/15/16 18:45 Expected date of discharge: 05/18/16 Attending physician: Srini Snyder Consults: 05/16/16 09:39 Consult Physician Routine Consulting Provider: Mary Jo Lovett Consult Reason/Comments: CVA/TIA Do you want consulting provider notified?: Yes 05/17/16 08:00 Consult Physician Routine Consulting Provider: Davide Duque Consult Reason/Comments: Factor 10 Deficiency and recurrent TIA Do you want consulting provider notified?: Yes Primary care physician: Gilbert Trivedi [facility] Course: The 66-year-old female presented to the emergency room with complaints of right- sided weakness. Patient has a history of love factor X efficiency. Patient was evaluated by Dr. Muniz. Patient is now stable no neural deficits. The case was discussed with patients weaving inspector physician stated baby aspirin would be appropriate daily. Assessment transient ischemic attack factor X deficiency diabetes type II hypertension Plan patient is to follow up with family physician Dr. Gilbert Trivedi. Patient is to follow up with weaving inspector. Patients to follow up with neurology Dr. Lovett Patient Condition at Discharge: Good Plan - Discharge Summary New Discharge Prescriptions: Aspirin [Adult Low Dose Aspirin EC] 81 mg PO DAILY #90 tablet.dr Discharge Medication List Acetaminophen-Codeine 300-30mg [Tylenol w/codeine #3] 1 tab PO Q4-6H PRN [History] Ascorbic Acid [Vitamin C] 500 mg PO DAILY 05/15/16 [History] Calcium Carbonate/Vitamin D3 [Calcium 500-Vit D3 600 Tablet] 1 tab PO BID [History] Clindamycin Topical Soln [Cleocin-T Topical Soln] 1 applic TOPICAL BID PRN 05/15 [History] DULoxetine HCL [Cymbalta] 60 mg PO DAILY 05/15/16 [History] Fluocinonide 0.05% [Lidex 0.05% cream] 1 applic TOPICAL DAILY PRN 05/15/16 [ History] HYDROcodone/APAP 5-325MG [[place] 5-325] 1 tab PO Q6H PRN 05/15/16 [History] Insulin Glargine,Hum.rec.anlog [Lantus Solostar] 72 unit SQ HS 05/15/16 [History ] Insulin Lispro [humaLOG Kwikpen] 10 unit SQ AC-TID 05/15/16 [History] LORazepam [Ativan] 0.5 mg PO TID PRN 05/15/16 [History] Lisinopril [Zestril] 20 mg PO BID 05/15/16 [History] Multivitamins, Thera [Multivitamin] 1 tab PO DAILY 05/15/16 [History] [place]-3 Fatty Acids [Friedens-3] 1,000 mg PO DAILY 05/15/16 [History] Zolpidem Tartrate [Ambien Cr] 12.5 mg PO HS PRN 05/15/16 [History] metFORMIN HCL [Glucophage] 500 mg PO BID 05/15/16 [History] Non-Formulary Drug [Non Formulary Drug] 1,700 units IV WEEKLY PRN 05/17/16 [ History] Aspirin [Adult Low Dose Aspirin EC] 81 mg PO DAILY #90 tablet. 05/18/16 [Rx] Follow up Appointment(s)/Referral(s): Gilbert Trivedi MD [Primary Care Provider] - 1-2 days [facility] Visiting Nurse, [NON-STAFF] - Discharge Disposition: HOME WITH HOME HEALTH SERVICES
[2016-05-18 17:40] LABS: Glucose,Whole Blood 153 mg/dL (75-99)
--- NOTE | 2016-05-18 18:07 | P.PN ---
Subjective This patient is a 66-year-old right-handed white female who was admitted yesterday with symptoms of right-sided weakness and possible TIA. 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 She takes injections twice a week for treatment of this clotting factor deficiency. She is being followed closely at the [facility] with her primary clinical ob. The patient underwent a complete stroke evaluation for possible TIA versus stroke. She had MRI of the brain completed today which came back negative with no evidence of acute stroke. There was evidence of an old lacunar infarct in the right thalamus which is felt to be old. No other acute changes were noted. She underwent carotid Doppler ultrasound which came back negative for any evidence of carotid artery stenosis. She has been doing well today and is had no further recurrence of right-sided numbness or weakness. We have reviewed all of her test results with the patient and her at bedside today. All of their questions were answered. She did give us a contact number of her clinical ob at the [facility]. We did contact the 24- hour service but did not get a call back today. We would recommend the patient to discuss further management with her clinical ob. She is not a candidate for aspirin therapy given her factor X deficiency at this time. We would recommend she follow-up with her clinical ob once she is discharged from the hospital. The patient also underwent routine EEG which was reviewed today and is normal for her age. Her overall workup thus far has come back negative at this time. As mentioned she should follow-up with her clinical ob at the [facility] to see if there is any indication for aspirin therapy. At this time we will hold off and will await her primary clinical ob to make the decision. We were unable to contact the patient's clinical ob at the end of her stay [facility] yesterday. She will be discharged home and will follow-up with her over the phone in regards to whether she is a candidate for aspirin therapy. We have reviewed all of her test results that were recently done and all are within normal limits. She continues to do well today. She has been up and ambulating without any difficulties. She may be considered for discharge home later today. Objective - Vital Signs Vital signs: Vital Signs Temp 98.1 F 05/18/16 15:00 Pulse 89 05/18/16 16:00 Resp 16 05/18/16 16:00 BP 165/81 05/18/16 15:00 Pulse Ox 97 05/18/16 15:00 Intake & Output 05/17/16 05/18/16 05/18/16 18:59 06:59 18:59 Intake Total 120 320 Output Total 300 Balance 120 -300 320 Intake: Oral 120 320 Output: Urine 300 Other: Voiding Method Toilet Toilet Toilet # Voids 3 1 - Exam Physical examination: PHYSICAL EXAMINATION: Patient is resting comfortably in bed. VITAL SIGNS: Blood pressure is [165/81]. Heart rate is [98]. Respiration is [16] . Temperature is [98.1]. HEENT: Head is atraumatic, neck is supple, there were no carotid bruits. CHEST: Lungs are clear to auscultation and percussion. CARDIAC: S1, S2 normal rate and rhythm. There is no murmur. ABDOMEN: Soft and nontender. Bowel sounds are present. EXTREMITIES: There is no pedal edema. Peripheral pulses are present. Neurological examination: Patient has a nonfocal neurological examination today. - Labs CBC & Chem 7: 05/17/16 06:13 05/17/16 06:10 Labs: Abnormal Lab Results - Last 24 Hours (Table) 05/17/16 05/18/16 05/18/16 Range/Units 20:48 07:34 11:55 POC Glucose (mg/dL) 160 H 106 H 114 H (75-99) mg/dL 05/18/16 Range/Units 17:38 POC Glucose (mg/dL) 153 H (75-99) mg/dL Assessment and Plan (1) Factor X deficiency Status: Chronic Code(s): D68.2 - HEREDITARY DEFICIENCY OF OTHER CLOTTING FACTORS (2) Diabetes mellitus Status: Acute Code(s): E11.9 - TYPE 2 DIABETES MELLITUS WITHOUT COMPLICATIONS (3) Transient cerebral ischemia Status: Acute Code(s): G45.9 - TRANSIENT CEREBRAL ISCHEMIC ATTACK, UNSPECIFIED Plan: This patient is a 66-year-old female admitted to Hospital with recurrent episodes of right-sided arm and leg weakness as well as slurred speech. Her clinical history suggests recurrent TIA. She underwent initial evaluation emergency room and was admitted to the hospital. She does have history of underlying factor X deficiency and cannot take aspirin or aspirin products. She has been using factor X concentrate which he takes twice a week to report for the last 15 years. She is followed at the hematology clinic at the [facility]. She is seen there twice a year. She was recently evaluated for bleeding in her right arm and tendinitis. This was in the fall of last year and her exam is results were fair and she was discharged. Patient has had some episodes of slurred speech. This has been recurrent on several occasions since admission. Her carotid Doppler ultrasound was reviewed and is negative for any carotid artery stenosis. Echocardiogram of the heart reveals ejection fraction to be 60%. We have recommended an MRI of the brain to further evaluate for possibility of lacunar stroke. She is not a candidate for aspirin or anticoagulation given her factor X deficiency state. We would recommend hematology consultation for further evaluation. We will obtain the results of her MRI and we'll give further recommendations at that time. The patient completed MRI of the brain today. The MRI study came back negative for any evidence of acute stroke. There was a remote right thalamic lacunar infarct noted which is old. The patient underwent carotid Doppler ultrasound as well as routine EEG both of these studies are normal. The patient would like to follow-up with her clinical ob at the [facility] for further management. She will have records sent to her as well. We did try to contact her today at the [facility] by the 24-hour service and she was unavailable at this time. We recommend the patient to follow-up with her clinical ob. Consideration as to whether she would be a candidate for very low-dose aspirin therapy. We will hold off on starting her on any aspirin without the consent of her clinical ob at the [facility]. Patient may be considered for discharge home tomorrow. We have consult dated hematology locally but the patient defers to her primary clinical ob at the [facility]. Patient's neurological examination remains nonfocal. She will be discharged home today and should follow-up with her hematology specialists at the [facility] regarding her recent hospitalization. We will defer to her primary clinical ob in regards to any further medication changes such as aspirin for TIA prophylaxis. Patient is to be discharged home and should follow-up with her primary care physician in one week. Her overall prognosis at this time remains very guarded.
--- NOTE | 2016-05-19 11:17 | P.CONS ---
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 Maggie Galloway at [facility]. She has known factor X deficiency, diagnosed post when she was about 31 years old. She has history of spontaneous hemoarthorsis and bleeding episodes that required plasma transfusions, she is on bebulin injections prophylactically twice a week since 2000. Over the last week pt has had strange neurological symptoms including right leg suddenly becoming weak and then her leg "gave out" twice. She then had complete right sided weakness with slurred speech so she came to hospital to be evaluated. She has been seen by Neurology, imaging suggests previous ischemia vs hemorrhage. Pt is currently asymptomatic and is getting dressed for discharge. She denies any residual eight sided weakness, numbness, tingling, speech or swallowing difficulties, she denies any current bleeding. Review of Systems All systems: negative Constitutional: Reports as per HPI Past Medical History Past Medical History: Blood Disorder, Cancer, Diabetes Mellitus, Hypertension Additional Past Medical History / Comment(s): prurigo nodularus, skin cancer, Factor X History of Any Multi-Drug Resistant Organisms: None Reported Past Surgical History: Hysterectomy Additional Past Surgical History / Comment(s): power port Past Psychological History: Anxiety, Depression Smoking Status: Never smoker Past Alcohol Use History: None Reported Past Drug Use History: None Reported Medications and Allergies Home Medications Medication Instructions Recorded Confirmed Type Acetaminophen-Codeine 300-30mg 1 tab PO Q4-6H PRN 05/15/16 05/15/16 History [Tylenol w/codeine #3] Ascorbic Acid [Vitamin C] 500 mg PO DAILY 05/15/16 05/15/16 History Calcium Carbonate/Vitamin D3 1 tab PO BID 05/15/16 05/15/16 History [Calcium 500-Vit D3 600 Tablet] Clindamycin Topical Soln 1 applic TOPICAL BID PRN 05/15/16 05/15/16 History [Cleocin-T Topical Soln] DULoxetine HCL [Cymbalta] 60 mg PO DAILY 05/15/16 05/15/16 History Fluocinonide 0.05% [Lidex 0.05% 1 applic TOPICAL DAILY PRN 05/15/16 05/15/16 History cream] HYDROcodone/APAP 5-325MG [[place] 1 tab PO Q6H PRN 05/15/16 05/15/16 History 5-325] Insulin Glargine,Hum.rec.anlog 72 unit SQ HS 05/15/16 05/15/16 History [Lantus Solostar] Insulin Lispro [humaLOG Kwikpen] 10 unit SQ AC-TID 05/15/16 05/15/16 History LORazepam [Ativan] 0.5 mg PO TID PRN 05/15/16 05/15/16 History Lisinopril [Zestril] 20 mg PO BID 05/15/16 05/15/16 History Multivitamins, Thera [Multivitamin] 1 tab PO DAILY 05/15/16 05/15/16 History [place]-3 Fatty Acids [[place]-3] 1,000 mg PO DAILY 05/15/16 05/15/16 History Zolpidem Tartrate [Ambien Cr] 12.5 mg PO HS PRN 05/15/16 05/15/16 History metFORMIN HCL [Glucophage] 500 mg PO BID 05/15/16 05/15/16 History Non-Formulary Drug [Non Formulary 1,700 units IV WEEKLY PRN 05/17/16 05/17/16 History Drug] Allergies Allergy/AdvReac Type Severity Reaction Status Date / Time amlodipine besylate Allergy Unknown Verified 05/15/16 18:28 [From Norvasc] erythromycin base Allergy Unknown Verified 05/15/16 18:28 guaifenesin Allergy Unknown Verified 05/15/16 18:28 latex Allergy Unknown Verified 05/15/16 18:28 levofloxacin [From Levaquin] Allergy Unknown Verified 05/15/16 18:28 Physical Exam Vitals: Vital Signs Temp Pulse Pulse Resp BP Pulse Ox 05/18/16 16:00 89 98 16 05/18/16 15:00 98.1 F 98 16 165/81 97 05/18/16 08:00 89 80 16 05/18/16 07:00 98.1 F 80 16 160/76 96 05/17/16 22:37 98.6 F 90 18 145/84 97 05/17/16 18:00 95 Intake and Output 01/03/2405/18/16 05/18/16 06:59 14:59 22:59 Intake Total 320 Output Total 300 Balance -300 320 Intake: Oral 320 Output: Urine 300 Other: Voiding Method Toilet Toilet Toilet # Voids 1 - Constitutional General appearance: average body habitus, cooperative, no acute distress - EENT Eyes: anicteric sclerae, normal appearance ENT: normal oropharynx - Neck Neck: no lymphadenopathy - Respiratory Respiratory: bilateral: CTA - Cardiovascular Heart sounds: normal: S1, S2 leg Peripheral Edema: bilateral: None - Gastrointestinal General gastrointestinal: normal bowel sounds, soft - Integumentary multiple bruises in various stages of healing on extremities - Neurologic Neurologic: CNII-XII intact - Musculoskeletal Musculoskeletal: strength equal bilaterally - Psychiatric Psychiatric: A&O x's 3, appropriate affect, intact judgment & insight Results CBC & Chem 7: 05/17/16 06:13 05/17/16 06:10 Labs: Abnormal Lab Results - Last 24 Hours (Table) 05/17/16 05/18/16 05/18/16 Range/Units 20:48 07:34 11:55 POC Glucose (mg/dL) 160 H 106 H 114 H (75-99) mg/dL Assessment and Plan (1) Factor X deficiency Narrative/Plan: Pt has suspected TIA and has known factor X deficiency for which she is on prophylactic bebulin injection twice a week. She has had numerous spontaneous bleeds in the past. Pt Hydrography Teacher Dr. Galloway has been contacted and per pt her Doctor has agreed to low dose asa daily and pt is being discharge. She will f/u at [facility] soon. Status: Chronic
== END 2016-05-18 18:13 | disposition home health service (06) | DRG 69 ==
LOC: EC 18:15 → 6SEL 18:45 → 5MS5E 05-17 11:51
PROVIDERS: ADMIT Hospitalist; ATTEND Hospitalist
DX: G45.9 Transient cerebral ischemic attack, unspecified (principal); D68.2 Hereditary deficiency of other clotting factors; E11.9 Type 2 diabetes mellitus without complications; E78.5 Hyperlipidemia, unspecified; F32.9 Major depressive disorder, single episode, unspecified; F41.9 Anxiety disorder, unspecified; I10 Essential (primary) hypertension; R55 Syncope and collapse; S09.93XA Unspecified injury of face, initial encounter; E66.9 Obesity, unspecified; Z68.31 Body mass index [BMI] 31.0-31.9, adult; Z85.828 Personal history of other malignant neoplasm of skin; Z86.73 Personal history of transient ischemic attack (TIA), and cerebral infarction without residual deficits; Z79.4 Long term (current) use of insulin; Z79.899 Other long term (current) drug therapy; Z88.8 Allergy status to other drugs, medicaments and biological substances; Z88.1 Allergy status to other antibiotic agents; Z91.040 Latex allergy status; Z82.49 Family history of ischemic heart disease and other diseases of the circulatory system; W19.XXXA Unspecified fall, initial encounter
CPT/HCPCS: 70450; 70551; 71020; 80053; 82550; 82553; 83036; 84443; 84484; 85025; 85610; 85730; 93005; 93306; 93880; 95816; 96360; 99285

== ENCOUNTER → 2016-09-21 | Outpatient (CLI) | payer MEDICARE ==
--- NOTE | 2016-09-21 15:15 | BD ---
EXAMINATION TYPE: MG DEXA axial skeleton. DATE OF EXAM: 09/21/2016 2:59 PM COMPARISON: Prior DEXA bone scan July 17, 2014. CLINICAL HISTORY: Postmenopausal female Height: 5 FT 1 1/4 IN Weight: 177 FRAX RISK QUESTIONS: Alcohol (3 or more units per day): NO Family History (Parent hip fracture): NO Glucocorticoids (More than 3mos): NO (Ex: prednisone, prednisolone, methylprednisolone, dexamethasone, and hydrocortisone). History of Fracture in Adulthood: NO Secondary Osteoporosis: 1. Type 1 Diabetes: NO 2. Hyperthyroidism: NO 3. Menopause before 45: YES 4. Malnutrition: NO 5. Chronic liver disease: HEP C Rheumatoid Arthritis: NO Current Tobacco Use: NO RISK FACTORS HISTORY OF: Family History of Osteoporosis: YES Postmenopausal woman: TOTAL HYST AGE 35 , Take estrogen and/or progesterone medications: TOOK FROM AGE35 -60 NO LONGER MEDICATIONS: Prednisone or other steroids: How Long: Thyroid Medications: Which medication: How Long: Osteoporosis Medications: Which medication: How Long: Additional Medications: LANTUS, HUMALOG, LISINOPRIL HCTZ, CYMBALTA, ATIVAN, TYLENOL 3, AMBIEN,FLUCOCI NONIDE, CLINDAMYCIN Additional History: EXAM MEASUREMENTS: Bone mineral densitometry was performed using the [employer] System. Bone mineral density as measured about the Lumbar spine is: ----- L1-L4(G/cm2): 1.115 T Score Values are as follows: ----- L2: -0.2 ----- L3: -0.9 ----- L4: -0.6 ----- L1-L4: -0.5 Bone mineral density has: Decreased -2.8% since study of: 2014 Bone mineral density about the R hip (g/cm2): 1.052 Bone mineral density about the L hip (g/cm2): 1.054 T Score values are as follows: -----R Neck: 0.1 -----L Neck: 0.1 -----R Total: 0.5 -----L Total: 0.7 Bone mineral density has: Decreased -3.3% since study of: 2014 IMPRESSION: Normal (Values between +1 and -1 indicate normal bone mass). Consider repeating this study in 5 year s or sooner if there is some new clinical indication. NOTE: T-SCORE=SD OF THE YOUNG ADULT MEAN.
--- NOTE | 2016-09-23 08:29 | MM ---
Reason for exam: screening (asymptomatic). Last mammogram was performed 1 year and 1 month ago. History: Patient is postmenopausal and has history of other cancer at age 64. Family history of breast cancer in maternal cousin at age 64 and breast cancer in paternal aunt at age 80. Benign right mammotome panel of the right breast, March 09, 2006. Benign excisional biopsy of the right breast, March 08, 2005. Took estrogen for 25 years 8 months beginning at age 35. Physical Findings: A clinical breast exam by your physician is recommended on an annual basis and results should be correlated with mammographic findings. MG 3D Screening Mammo W/Cad Bilateral CC and MLO view(s) were taken. Prior study comparison: August 28, 2015, bilateral MG 3d diag mammo w/cad RAKESH. July 17, 2014, bilateral MG diagnostic mammo w CAD RAKESH. July 17, 2014, bilateral US breast limited BILAT. September 03, 2013, CAD bilateral diagnostic mammogram. The breast tissue is heterogeneously dense. This may lower the sensitivity of mammography. Previous mammotome biopsy in the right breast. Chest port remains over the right pectoralis. No significant changes when compared with prior studies. ASSESSMENT: Negative, BI-RAD 1 RECOMMENDATION: Routine screening mammogram of both breasts in 1 year.
== END | disposition home or self-care (01) ==
LOC: RADMAMWWP 13:51
PROVIDERS: ATTEND Family Medicine
DX: Z12.31 Encounter for screening mammogram for malignant neoplasm of breast (principal); Z78.0 Asymptomatic menopausal state
CPT/HCPCS: 77080; 77063; G0202

== ENCOUNTER → 2016-10-25 | Outpatient (CLI) | payer MEDICARE, OTHER ==
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
--- NOTE | 2016-10-25 17:00 | XR ---
EXAMINATION TYPE: XR chest 2V DATE OF EXAM: 10/25/2016 HISTORY: V89.2XXA. REFERENCE: Previous study dated 05/15/2016. FINDINGS: There is a MediPort in place via a right internal jugular approach. Its tip is in the super ior vena cava. Heart is mildly enlarged. The lungs appear clear. Pleural spaces are clear. No clavicular fracture is seen. No definite spinal fracture is seen. IMPRESSION: MILD CARDIOMEGALY.
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
== END | disposition home or self-care (01) ==
LOC: RADXRMAIN 15:19
PROVIDERS: ATTEND Family Medicine
DX: M50.322 Other cervical disc degeneration at C5-C6 level (principal); I51.7 Cardiomegaly; M25.811 Other specified joint disorders, right shoulder
CPT/HCPCS: 71020; 72050

== ENCOUNTER → 2016-12-30 | Outpatient (CLI) | payer MEDICARE ==
--- NOTE | 2016-12-30 15:30 | CT ---
EXAMINATION TYPE: CT brain wo con DATE OF EXAM: 12/30/2016 COMPARISON: May 15 HISTORY: Patient complaihs of dysphasia. CT DLP: [address] of the brain was performed. The ventricles, basal cisterns and sulci overlying the cerebral convexities demonstrate mild enlargem ent. There is no evidence for intracranial hemorrhage or sulcal effacement. There is decreased attenuation about the periventricular white matter and deep white matter of both c erebral hemispheres, compatible with chronic small vessel ischemia. Differential diagnosis does inclu de demyelination. No mass effects are seen.No midline shift. Osseous calvarium is intact. If symptoms persist consider MRI. IMPRESSION: 1. Age related atrophic and chronic small vessel ischemic change without acute intracranial process s een at this time.
== END ==
LOC: RADCTMAIN 15:06
PROVIDERS: ATTEND Family Medicine
DX: G31.1 Senile degeneration of brain, not elsewhere classified (principal); I67.82 Cerebral ischemia
CPT/HCPCS: 70450

== ENCOUNTER → 2017-02-07 | Outpatient (CLI) | payer MEDICARE ==
--- NOTE | 2017-02-08 07:02 | US ---
EXAMINATION TYPE: US carotid duplex BILAT DATE OF EXAM: 02/07/2017 COMPARISON: US 2017 CLINICAL HISTORY: Z86.73 HX Of Stroke. Recurrent TIA EXAM MEASUREMENTS: RIGHT: Peak Systolic Velocity (PSV) cm/sec ----- Right CCA: 74.5 ----- Right ICA: 70.2 ----- Right ECA: 105.0 ICA/CCA ratio: 0.9 RIGHT: End Diastole cm/sec ----- Right CCA: 15.9 ----- Right ICA: 20.8 ----- Right ECA: 17.4 LEFT: Peak Systolic Velocity (PSV) cm/sec ----- Left CCA: 61.8 ----- Left ICA: 83.2 ----- Left ECA: 106.0 ICA/CCA ratio: 1.4 LEFT: End Diastole cm/sec ----- Left CCA: 15.0 ----- Left ICA: 30.0 ----- Left ECA: 16.3 VERTEBRALS (direction of flow): Right Vertebral: Antegrade Left Vertebral: Antegrade Rhythm: Arrhythmia noted on several PW Doppler images. IMPRESSION: 1. Mild to moderate intimal atherosclerosis are seen at bilateral carotid bifurcation with no hemodyn amically significant stenosis of either carotid system. 2. Incidental noted transient arrhythmia. EKG may be of benefit if there is no prior history of arrhy thmia.
== END | disposition home or self-care (01) ==
LOC: RADUSWWP 14:18
PROVIDERS: ATTEND Psychiatry & Neurology Neurology
DX: I65.23 Occlusion and stenosis of bilateral carotid arteries (principal); I63.512 Cerebral infarction due to unspecified occlusion or stenosis of left middle cerebral artery; Z86.73 Personal history of transient ischemic attack (TIA), and cerebral infarction without residual deficits
CPT/HCPCS: 93880

== ENCOUNTER 2017-10-04 09:28 | Day surgery (SDC) | payer MEDICARE ==
[2017-10-03 11:49] VITALS: BMI 29.2
[~2017-10-04 09:28] MED LIST: LACTATED RINGERS 1,000 ML IV SCH
[2017-10-04 09:50] VITALS: RESP 16; TEMP 98
[2017-10-04 10:00] LABS: Glucose,Whole Blood 135 mg/dL (75-99)
[2017-10-04] MEDS ORDERED: PROPOFOL 10 MG/ML 20 ML VIAL IV ONE (10:03)
--- NOTE | 2017-10-04 10:19 | P.PCN ---
Date of Procedure: 10/04/17 Procedure(s) Performed: BRIEF HISTORY: Patient is a 67-year-old pleasant white female, scheduled for an elective colonoscopy as a part of screening for colorectal neoplasia. PROCEDURE PERFORMED: Colonoscopy. PREOPERATIVE DIAGNOSIS: Screening for colon cancer. IV sedation per Anesthesia. PROCEDURE: After informed consent was obtained, the patient, was brought into the endoscopy unit. IV sedation was administered by Anesthesia under continuous monitoring. Digital rectal examination was normal. Initially the Olympus CF- 160 flexible video colonoscope was then inserted in the rectum, gradually advanced into the cecum without any difficulty. Careful examination was performed as the scope was gradually being withdrawn. Ileocecal valve and the appendiceal orifice were visualized and appeared normal. Prep was excellent. Mucosa of the cecum, ascending colon, transverse colon, descending colon, sigmoid colon, and rectum appeared normal. Retroflexion was performed in the rectum and no lesions were seen. The patient tolerated the procedure well. IMPRESSION: Normal-appearing colon from rectum to cecum with no evidence of colorectal neoplasia . RECOMMENDATIONS: Findings of this examination were discussed with the patient as well as her family. She was advised to have a repeat screening colonoscopy in 10 years.
[2017-10-04 10:39] VITALS: BP 152/84; PULSE 75
== END 2017-10-04 11:06 | disposition home or self-care (01) ==
LOC: ORWHC2ENDO 09:28
PROVIDERS: ATTEND Internal Medicine Gastroenterology
DX: Z12.11 Encounter for screening for malignant neoplasm of colon (principal); I10 Essential (primary) hypertension; D68.2 Hereditary deficiency of other clotting factors; E11.9 Type 2 diabetes mellitus without complications; Z79.4 Long term (current) use of insulin; Z86.73 Personal history of transient ischemic attack (TIA), and cerebral infarction without residual deficits; K75.9 Inflammatory liver disease, unspecified; Z79.82 Long term (current) use of aspirin; Z79.891 Long term (current) use of opiate analgesic; Z79.899 Other long term (current) drug therapy; Z88.8 Allergy status to other drugs, medicaments and biological substances; Z88.1 Allergy status to other antibiotic agents; Z91.040 Latex allergy status
CPT/HCPCS: J2704; G0121

== ENCOUNTER → 2017-11-29 | Outpatient (CLI) | payer MEDICARE ==
--- NOTE | 2017-11-30 11:12 | MM ---
Reason for exam: screening (asymptomatic). Last mammogram was performed 1 year and 2 months ago. History: Patient is postmenopausal and has history of other cancer at age 64. Family history of breast cancer in maternal cousin at age 64 and breast cancer in paternal aunt at age 80. Benign right mammotome panel of the right breast, March 09, 2006. Benign excisional biopsy of the right breast, March 08, 2005. Took estrogen for 25 years 8 months beginning at age 35. Physical Findings: A clinical breast exam by your physician is recommended on an annual basis and results should be correlated with mammographic findings. MG 3D Screening Mammo W/Cad Bilateral CC and MLO view(s) were taken. XCCL view(s) were taken of the right breast. Prior study comparison: September 21, 2016, bilateral MG 3d screening mammo w/cad. August 28, 2015, bilateral MG 3d diag mammo w/cad RAKESH. The breast tissue is heterogeneously dense. This may lower the sensitivity of mammography. Previous mammotome biopsy in the right breast. No significant changes when compared with prior studies. ASSESSMENT: Benign, BI-RAD 2 RECOMMENDATION: Routine screening mammogram of both breasts in 1 year.
== END | disposition home or self-care (01) ==
LOC: RADMAMWWP 16:37
PROVIDERS: ATTEND Family Medicine
DX: Z12.31 Encounter for screening mammogram for malignant neoplasm of breast (principal)
CPT/HCPCS: 77063; 77067

== ENCOUNTER → 2019-01-22 | Outpatient (CLI) | payer MEDICARE ==
--- NOTE | 2019-01-23 12:15 | MM ---
Reason for exam: screening (asymptomatic). Last mammogram was performed 1 year and 2 months ago. History: Patient is postmenopausal and has history of other cancer at age 64. Family history of breast cancer in maternal cousin at age 64 and breast cancer in paternal aunt at age 80. Benign right mammotome panel of the right breast, March 09, 2006. Benign excisional biopsy of the right breast, March 08, 2005. Took estrogen for 25 years 8 months beginning at age 35. Physical Findings: A clinical breast exam by your physician is recommended on an annual basis and results should be correlated with mammographic findings. MG 3D Screening Mammo W/Cad Bilateral CC and MLO view(s) were taken. Prior study comparison: November 29, 2017, bilateral MG 3d screening mammo w/cad. September 21, 2016, bilateral MG 3d screening mammo w/cad. The breast tissue is heterogeneously dense. This may lower the sensitivity of mammography. Previous mammotome biopsy in the left breast. Distortion inferior right breast. Port on right. No significant changes when compared with prior studies. ASSESSMENT: Benign, BI-RAD 2 RECOMMENDATION: Routine screening mammogram of both breasts in 1 year.
--- NOTE | 2019-01-23 16:16 | BD ---
EXAMINATION TYPE: Axial Bone Density DATE OF EXAM: 01/22/2019 COMPARISON: 09.21.2016 CLINICAL HISTORY: 69 YR OLD FEMALE....ICD-10 CODE: Z78.0 POST MENOPAUSAL STATE Height: 60.5 Weight: 163 FRAX RISK QUESTIONS: Secondary Osteoporosis: YES 1. Type 1 Diabetes: YES 3. Menopause before 45: YES RISK FACTORS HISTORY OF: Postmenopausal woman: YES, TOTAL HYST AT 35 YRS OLD Take estrogen and/or progesterone medications: FOR 25 YRS IN PAST, NONE NOW Hyperparathyroidism: NO Adrenal Insufficiency: NO MEDICATIONS: Additional Medications: CALCIUM AND VIT D, BP MEDS, CYMBALTA, ATIVAN, INSULIN, Additional History: DIABETIC, HYPERTENSION, HX OF HEP C, CURED EXAM MEASUREMENTS: Bone mineral densitometry was performed using the Voxel System. Bone mineral density as measured about the Lumbar spine is: ----- L1-L4(G/cm2): 1.175 T Score Values are as follows: ----- L1: -0.2 ----- L2: 0.4 ----- L3: -0.2 ----- L4: -0.2 ----- L1-L4: 0.0 Bone mineral density has: Increased 5.6% since study of: 09.21.2016 Bone mineral density about the R hip (g/cm2): 1.083 Bone mineral density about the L hip (g/cm2): 1.124 T Score values are as follows: -----R Neck: 0.1 -----L Neck: 0.4 -----R Total: 0.6 -----L Total: 0.9 Bone mineral density has: Increased 0.2% since study of: 09.21.2016 FRAX%s: THERE IS A 6.6% CHANCE FOR A MAJOR OSTEOPOROTIC FX AND A 0.2% FOR HIP....PROBABILITY FOR F X IN 10 YRS TIME IMPRESSION: Normal (Values between +1 and -1 indicate normal bone mass). Consider repeating this study in 5 year s or sooner if there is some new clinical indication. NOTE: T-SCORE=SD OF THE YOUNG ADULT MEAN.
== END | disposition home or self-care (01) ==
LOC: RADMAMWWP 15:53
PROVIDERS: ATTEND Family Medicine
DX: Z12.31 Encounter for screening mammogram for malignant neoplasm of breast (principal); Z78.0 Asymptomatic menopausal state
CPT/HCPCS: 77063; 77067; 77080

== ENCOUNTER → 2019-02-12 | Outpatient (CLI) | payer MEDICARE ==
[2019-02-12 14:46] VITALS: BP 112/72; PULSE 73; RESP 16; TEMP 98.2; BMI 29.3
--- NOTE | 2019-02-12 15:43 | P.HPOB ---
History of Present Illness H&P Date: 02/12/19 Chief Complaint: The patient is here for her routine gynecologic exam. This is a 69-year-old with an LMP of 1985. The patient is here to establish with this office. It has been about 3 years since her last pelvic exam. She previously saw Dr. Arana as her rn forensic. She is status post [facility] with unilateral oophorectomy for benign reasons. She is currently without gynecologic complaints, but was treated for a yeast infection in December following a course of antibiotics. She uses an oral pill for the yeast infection which seemed to take care of the symptoms. Review of Systems Her weight has been stable. She denies respiratory, cardiac and G.I. problems. She denies maltreatment . She did trip once over something this year, but did not break any bones. : she denies any significant problems with urinary leakage. 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 Hx of CVA December 2016. Hx of Hepatitis C & states cured with Treatment. GULKANA- left ear worse. Type 2 diabetes requiring insulin. Chronic knee problems. 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 History of Any Multi-Drug Resistant Organisms: None Reported Past Surgical History: Hysterectomy Additional Past Surgical History / Comment(s): power port. Unilateral oophorectomy. GALEN with (remaining) oophorectomy in 1985. Colonoscopy 2018(3rd, next after 10yrs). Past Anesthesia/Blood Transfusion Reactions: No Reported Reaction, Family History of Problems w/ Anesthesia Additional Past Anesthesia/Blood Transfusion Reaction / Comment(s): SON HAD DIFFICULTY WAKING UP Past Psychological History: Anxiety, Depression Smoking Status: Never smoker Past Alcohol Use History: None Reported Past Drug Use History: None Reported Additional History: She is currently undergoing a divorce. She has not been sexually active recently. 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 - Past Family History Father Family Medical History: Cancer Additional Family Medical History / Comment(s): LUNG CANCER Mother Family Medical History: Dementia Additional Family Medical History / Comment(s): Paternal and maternal cousins had breast cancer. Medications and Allergies Home Medications Medication Instructions Recorded Confirmed Type Acetaminophen-Codeine 300-30mg 1 tab PO Q6HR PRN 05/15/16 02/12/19 History [Tylenol w/codeine #3] Ascorbic Acid [Vitamin C] 500 mg PO DAILY 05/15/16 02/12/19 History Calcium Carbonate/Vitamin D3 2 tab PO DAILY 05/15/16 02/12/19 History [Calcium 500-Vit D3 600 Tablet] DULoxetine HCL [Cymbalta] 60 mg PO DAILY 05/15/16 02/12/19 History Insulin Glargine,Hum.rec.anlog 65 unit SQ HS 05/15/16 02/12/19 History [Lantus Solostar] Insulin Lispro [humaLOG Kwikpen] 10 unit SQ AC-TID 05/15/16 02/12/19 History Multivitamins, Thera [Multivitamin 1 tab PO DAILY 05/15/16 02/12/19 History (formulary)] Start-3 Fatty Acids [Start-3] 1,000 mg PO DAILY 05/15/16 02/12/19 History Aspirin [Adult Low Dose Aspirin EC] 162 mg PO DAILY 10/03/17 02/12/19 History Coagadex 1,500 units IV DIRECTED 10/03/17 02/12/19 History EPINEPHrine (Auto Inject) [Epipen] 0.3 mg IM ONCE PRN 10/03/17 02/12/19 History LORazepam [Ativan] 1 mg PO DAILY PRN 10/03/17 02/12/19 History Lisinopril-Hctz 20-25 mg 1 tab PO BID 10/03/17 02/12/19 History [Zestoretic 20-25] Allergies Allergy/AdvReac Type Severity Reaction Status Date / Time amlodipine besylate Allergy Rash/Hives Verified 10/04/17 09:45 [From Norvasc] erythromycin base Allergy Unknown Verified 10/04/17 09:45 guaifenesin Allergy Unknown Verified 10/04/17 09:45 latex Allergy Rash/Hives Verified 10/04/17 09:45 levofloxacin [From Levaquin] Allergy Unknown Verified 10/04/17 09:45 Exam Vital Signs Temp Pulse Resp BP Pulse Ox 02/12/19 14:25 98.2 F 73 16 112/72 100 Intake and Output 02/12/19 02/12/19 02/12/19 06:59 14:59 22:59 Other: Weight 74.389 kg Height 5 feet 2-1/2 inches, weight 163 pounds, BMI 29.5. This is a well-developed well-nourished white female who is alert and oriented times 3 in no acute distress. HEENT: Within normal limits. NECK: Supple without mass or thyromegaly. CHEST AND LUNGS: Clear to auscultation. HEART: Regular rate and rhythm. BREASTS: Are without mass or discharge. AXILLARY EXAM: Negative for adenopathy. BACK: Negative for CVA tenderness. ABDOMEN: Soft, nontender, without palpable masses. PELVIC EXAM: External genitalia appears normal with mild to moderate atrophy. Vagina appears normal with mild to moderate atrophy. There is no unusual discharge. There is no evidence of prolapse. Bimanual examination is negative for mass or tenderness. RECTAL EXAM: Rectovaginal exam is negative for mass or tenderness and is negative for occult blood. EXTREMITIES: Nontender. IMPRESSION: 1. 69-year-old menopausal female status post GALEN and BSO with normal gynecologic exam. 2. Multiple medical problems including factor X deficiency which requires regular factor X infusions. PLAN: 1. Pap smears have been discontinued. 2. Self breast awareness was discussed with the patient. 3. Screening mammogram was recently done on 01/23/2019 and was benign. She will repeat this in 1 year. 4. Osteoporosis prevention was discussed. I have stressed the importance of adequate calcium, vitamin D and regular exercise. Recommended amounts of calcium and vitamin D were also discussed. She had a normal bone density test done on 01/22/2019. She will repeat this in 5-6 years. 5. She Did receive her flu shot this fall. 6. The patient was advised to return in 1-2 years for her well woman examination.
== END ==
LOC: WWCWWP 14:19
PROVIDERS: ATTEND Obstetrics & Gynecology
DX: Z53.9 Procedure and treatment not carried out, unspecified reason (principal)

== ENCOUNTER → 2019-04-24 | Outpatient (CLI) | payer MEDICARE ==
--- NOTE | 2019-04-24 18:19 | XR ---
EXAMINATION TYPE: XR chest 2V DATE OF EXAM: 04/24/2019 COMPARISON: 10/25/2016 HISTORY: Neck pain TECHNIQUE: 2 views FINDINGS: Heart is normal. Lungs are clear. Costophrenic angles are clear. Bony thorax is intact. The re is right-sided central venous catheter with the tip in the superior vena cava. IMPRESSION: No active cardiopulmonary disease. There is improved inspiration compared to old exam.
== END | disposition home or self-care (01) ==
LOC: RADXRMAIN 16:58
PROVIDERS: ATTEND Family Medicine
DX: R07.81 Pleurodynia (principal)
CPT/HCPCS: 71046

== ENCOUNTER → 2019-09-25 | Outpatient (CLI) | payer MEDICARE, BC, OTHER ==
--- NOTE | 2019-09-25 13:36 | US ---
EXAMINATION TYPE: US venous doppler duplex UE RT DATE OF EXAM: 09/25/2019 COMPARISON: NONE CLINICAL HISTORY: R22.1 Localized swelling, mass and lump, neck. pain right neck/shoulder for 2 month s, edema right neck, port right chest due to factor 10 disorder SIDE PERFORMED: right Right Arm: No evidence of DVT Grayscale, color doppler, spectral doppler imaging performed of the deep veins of the right upper ext remity. There is normal flow, compressibility and vascular waveforms. IMPRESSION: No ultrasound evidence for acute deep or superficial venous thrombosis in the right upper extremity.
== END | disposition home or self-care (01) ==
LOC: RADUSWWP 12:08
PROVIDERS: ATTEND Surgery
DX: R22.1 Localized swelling, mass and lump, neck (principal)

== ENCOUNTER → 2020-05-05 | Outpatient (CLI) | payer MEDICARE, BC ==
--- NOTE | 2020-05-11 10:51 | MM ---
Reason for exam: screening (asymptomatic). Last mammogram was performed 1 year and 3 months ago. History: Patient is postmenopausal and has history of other cancer at age 64. Family history of breast cancer in maternal cousin at age 64 and breast cancer in paternal aunt at age 80. Benign right mammotome panel of the right breast, March 09, 2006. Benign excisional biopsy of the right breast, March 08, 2005. Took estrogen for 25 years 8 months beginning at age 35. Physical Findings: A clinical breast exam by your physician is recommended on an annual basis and results should be correlated with mammographic findings. MG 3D Screening Mammo W/Cad Bilateral CC and MLO view(s) were taken. Prior study comparison: January 22, 2019, bilateral MG 3d screening mammo w/cad. November 29, 2017, bilateral MG 3d screening mammo w/cad. The breast tissue is heterogeneously dense. This may lower the sensitivity of mammography. Previous mammotome biopsy in the right breast. Partially visualized injection port right MLO view. Far posterior inferior right MLO asymmetric density is more defined. ASSESSMENT: Incomplete: need additional imaging evaluation, BI-RAD 0 RECOMMENDATION: Special view mammogram of the right breast. (3D) If lesion persists on supplemental views, image directed ultrasound is recommended. [facility] will attempt to contact patient to return for supplemental views and ultrasound if indicated.
== END | disposition home or self-care (01) ==
LOC: RADMAMWWP 14:52
PROVIDERS: ATTEND Family Medicine
DX: Z12.31 Encounter for screening mammogram for malignant neoplasm of breast (principal)
CPT/HCPCS: 77063; 77067

== ENCOUNTER → 2020-05-21 | Outpatient (CLI) | payer MEDICARE, BC ==
--- NOTE | 2020-05-22 08:15 | MM ---
Reason for exam: additional evaluation requested from abnormal screening. Last mammogram was performed 1 month ago. History: Patient is postmenopausal and has history of other cancer at age 64. Family history of breast cancer in maternal cousin at age 64 and breast cancer in paternal aunt at age 80. Benign right mammotome panel of the right breast, March 09, 2006. Benign excisional biopsy of the right breast, March 08, 2005. Took estrogen for 25 years 8 months beginning at age 35. Physical Findings: Nurse Summary: 1.5cm nodule in the right breast at 3 o'clock (nurse mj). MG 3D Work Up W/Cad RT CC and MLO view(s) were taken of the right breast. Prior study comparison: May 05, 2020, bilateral MG 3d screening mammo w/cad. January 22, 2019, bilateral MG 3d screening mammo w/cad. The breast tissue is heterogeneously dense. This may lower the sensitivity of mammography. Previous mammotome biopsy in the right breast. Right chest wall injection port. Posterior inferior asymmetric density disperses on additional views. 3 o'clock palpable marker. These results were verbally communicated with the patient and result sheet given to the patient on 05/21/20. ASSESSMENT: Incomplete: need additional imaging evaluation, BI-RAD 0 RECOMMENDATION: Ultrasound of the right breast. (palpable)
--- NOTE | 2020-05-22 08:18 | USB ---
Reason for exam: additional evaluation requested from abnormal screening. History: Patient is postmenopausal and has history of other cancer at age 64. Family history of breast cancer in maternal cousin at age 64 and breast cancer in paternal aunt at age 80. Benign right mammotome panel of the right breast, March 09, 2006. Benign excisional biopsy of the right breast, March 08, 2005. Took estrogen for 25 years 8 months beginning at age 35. US Breast Workup Limited RT Technologist: Macrina Byrne Right limited breast ultrasound including focal area of concern, retroareolar and axilla demonstrates a 1.6 x 0.8 x 0.6cm oval, slightly hyperechoic lesion at 2 o'clock, circumscribed suggestive of a benign lipoma. Scanned 2-4 o'clock. These results were verbally communicated with the patient and result sheet given to the patient on 05/21/20. ASSESSMENT: Benign, BI-RAD 2 RECOMMENDATION: Return to routine screening mammogram schedule for both breasts.
== END | disposition home or self-care (01) ==
LOC: RADMAMWWP 14:49
PROVIDERS: ATTEND Family Medicine
DX: R92.8 Other abnormal and inconclusive findings on diagnostic imaging of breast (principal)
CPT/HCPCS: 77065; 76642; G0279; 77061

== ENCOUNTER → 2021-05-27 | Outpatient (CLI) | payer MEDICARE, BC ==
--- NOTE | 2021-05-27 16:29 | BD ---
EXAMINATION TYPE: Axial Bone Density DATE OF EXAM: 05/27/2021 COMPARISON: NONE CLINICAL HISTORY: Height: 62 Weight: 156.6 FRAX RISK QUESTIONS: Alcohol (3 or more units per day): no Family History (Parent hip fracture): no Glucocorticoids (More than 3mos): no (Ex: prednisone, prednisolone, methylprednisolone, dexamethasone, and hydrocortisone). History of Fracture in Adulthood: no Secondary Osteoporosis: 1. Type 1 Diabetes: no 2. Hyperthyroidism: no 3. Menopause before 45: yes 4. Malnutrition: no 5. Chronic liver disease: no Rheumatoid Arthritis: no Current Tobacco Use: no RISK FACTORS HISTORY OF: Surgery to Spine/Hip(right/left)/Wrist (right/left): no Family History of Osteoporosis: no Active: no Diet low in dairy products/other sources of calcium: no Postmenopausal woman: yes Lost more than 2 inches in height since high school: no MEDICATIONS: scanned into pacs Additional History: EXAM MEASUREMENTS: Bone mineral densitometry was performed using the myQaa System. Bone mineral density as measured about the Lumbar spine is: ----- L1-L4(G/cm2): 1.182 T Score Values are as follows: ----- L2: 0.0 ----- L3: -0.1 ----- L4: 0.1 ----- L1-L4: 0.4 Bone mineral density has: increased 0.4 % since study of: 01.22.2019 Bone mineral density about the R hip (g/cm2): 1.015 Bone mineral density about the L hip (g/cm2): 1.067 T Score values are as follows: -----R Neck: -0.2 -----L Neck: 0.2 -----R Total: 0.5 -----L Total: 0.6 Bone mineral density has: decreased -2.9 % since study of: 01.22.2019 IMPRESSION: Normal (Values between +1 and -1 indicate normal bone mass). Consider repeating this study in 5 year s or sooner if there is some new clinical indication. NOTE: T-SCORE=SD OF THE YOUNG ADULT MEAN.
== END | disposition home or self-care (01) ==
LOC: RADBDWWP 13:18
PROVIDERS: ATTEND Family Medicine
DX: Z13.820 Encounter for screening for osteoporosis (principal); Z78.0 Asymptomatic menopausal state
CPT/HCPCS: 77080

== ENCOUNTER → 2021-09-14 | Outpatient (CLI) | payer MEDICARE, BC ==
[2021-09-14 13:17] VITALS: BP 125/76; PULSE 78; RESP 18; TEMP 97.8
--- NOTE | 2021-09-14 13:40 | P.HPOB ---
History of Present Illness H&P Date: 09/14/21 Chief Complaint: The patient is here for her routine gynecologic exam and ma mmogram. This is a 71-year-old with an LMP of 1985. The patient is status post GALEN and unilateral oophorectomy for benign reasons. She is without gynecologic complaints. Review of Systems The patient has lost 5 pounds over the last year. She denies respiratory, cardiac, or G.I. problems. 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 Hx of CVA December 2016. Hx of Hepatitis C & states cured with Treatment. TUNICA-BILOXI- left ear worse. Type 2 diabetes requiring insulin. Chronic knee problems. 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 History of Any Multi-Drug Resistant Organisms: None Reported Past Surgical History: Hysterectomy Additional Past Surgical History / Comment(s): power port. Unilateral oophorectomy. GALEN with (remaining) oophorectomy in 1985. Colonoscopy 2018(3rd, next after 10yrs). Past Anesthesia/Blood Transfusion Reactions: No Reported Reaction, Family History of Problems w/ Anesthesia Additional Past Anesthesia/Blood Transfusion Reaction / Comment(s): SON HAD DIFFICULTY WAKING UP Past Psychological History: Anxiety, Depression Smoking Status: Never smoker Past Alcohol Use History: None Reported Past Drug Use History: None Reported Additional History: She has been since 2019 and is currently in the process of getting a divorce. 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 - Past Family History Father Family Medical History: Cancer Additional Family Medical History / Comment(s): LUNG CANCER Mother Family Medical History: Dementia Additional Family Medical History / Comment(s): Paternal and maternal cousins had breast cancer. Medications and Allergies Home Medications Medication Instructions Recorded Confirmed Type Acetaminophen-Codeine 300-30mg 1 tab PO Q6HR PRN 05/15/16 09/14/21 History [Tylenol w/codeine #3] Ascorbic Acid [Vitamin C] 500 mg PO DAILY 05/15/16 09/14/21 History Calcium Carbonate/Vitamin D3 2 tab PO DAILY 05/15/16 09/14/21 History [Calcium 500-Vit D3 15 Mcg (600 Iu)] DULoxetine HCL [Cymbalta] 60 mg PO DAILY 05/15/16 02/12/19 History Insulin Lispro [humaLOG Kwikpen] 10 unit SQ AC-TID 05/15/16 09/14/21 History Multivitamins, Thera [Multivitamin 1 tab PO DAILY 05/15/16 09/14/21 History (formulary)] [place]-3 Fatty Acids [[place]-3] 1,000 mg PO DAILY 05/15/16 09/14/21 History Aspirin [Adult Low Dose Aspirin EC] 162 mg PO DAILY 10/03/17 09/14/21 History Coagadex 1,500 units IV DIRECTED 10/03/17 09/14/21 History EPINEPHrine (Auto Inject) [Epipen] 0.3 mg IM ONCE PRN 10/03/17 09/14/21 History LORazepam [Ativan] 0.5 mg PO DAILY PRN 10/03/17 09/14/21 History Lisinopril-Hctz 20-25 mg 1 tab PO BID 10/03/17 09/14/21 History [Zestoretic 20-25] Insulin Glargine,Hum.rec.anlog 50 unit SQ DAILY 09/14/21 09/14/21 History [Basaglar Kwikpen U-100] Allergies Allergy/AdvReac Type Severity Reaction Status Date / Time amlodipine besylate Allergy Rash/Hives Verified 09/14/21 12:57 [From Norvasc] erythromycin base Allergy Unknown Verified 09/14/21 12:57 guaifenesin Allergy Unknown Verified 09/14/21 12:57 latex Allergy Rash/Hives Verified 09/14/21 12:57 levofloxacin [From Levaquin] Allergy Unknown Verified 09/14/21 12:57 Exam Vital Signs Temp Pulse Resp BP Pulse Ox 09/14/21 13:05 97.8 F 78 18 125/76 98 Intake and Output 09/13/21 09/14/21 09/14/21 22:59 06:59 14:59 Other: Weight 71.668 kg Height 5 feet 3 inches, weight 158 pounds, BMI 28.0. This is a well-developed well-nourished white female who is alert and oriented times 3 in no acute distress. HEENT: Within normal limits. NECK: Supple without mass or thyromegaly. CHEST AND LUNGS: Clear to auscultation. A port is palpable in the right subclavicular area and this is nontender. HEART: Regular rate and rhythm. BREASTS: Are without mass or discharge. There is a benign-appearing mole on the right areola at the 1 o'clock position and this measures 4 x 5 mm. AXILLARY EXAM: Negative for adenopathy. BACK: Negative for CVA tenderness. ABDOMEN: Soft, nontender, without palpable masses. PELVIC EXAM: External genitalia appears normal with mild atrophy. Vagina appears normal with mild atrophy. There is no evidence of prolapse. Bimanual examination is negative for mass or tenderness. RECTAL EXAM: Rectovaginal exam is negative for mass or tenderness and is negative for occult blood. EXTREMITIES: Nontender. IMPRESSION: 1. 71-year-old menopausal female who is status post GALEN and BSO for benign reasons. PLAN: 1. Pap smears have been discontinued. 2. Self breast awareness was discussed with the patient. We have also discussed symptoms associated with inflammatory breast cancer. 3. Screening mammogram will be done today. 4. Osteoporosis prevention was discussed. I have stressed the importance of adequate calcium, vitamin D and regular exercise. Recommended amounts of calcium and vitamin D were also discussed. She had a normal bone density test done through her PCP on 05/27/2021. I have recommended that she repeat this after 5 years. 5. She has completed her Covid vaccination and has received a booster. 6. The patient was advised to return in 1-2 years for her well woman examination.
--- NOTE | 2021-09-15 13:44 | MM ---
Reason for exam: screening (asymptomatic). Last mammogram was performed 1 year and 4 months ago. History: Patient is postmenopausal and has history of other cancer at age 64. Family history of breast cancer in maternal cousin at age 64 and breast cancer in paternal aunt at age 80. Benign right mammotome panel of the right breast, March 09, 2006. Benign excisional biopsy of the right breast, March 08, 2005. Took estrogen for 25 years 8 months beginning at age 35. Physical Findings: A clinical breast exam by your physician is recommended on an annual basis and results should be correlated with mammographic findings. MG 3D Screening Mammo W/Cad Bilateral CC and MLO view(s) were taken. Prior study comparison: May 21, 2020, right breast MG 3d work up w/cad RT. May 05, 2020, bilateral MG 3d screening mammo w/cad. The breast tissue is heterogeneously dense. This may lower the sensitivity of mammography. There is no discrete abnormality. No significant changes when compared with prior studies. ASSESSMENT: Negative, BI-RAD 1 RECOMMENDATION: Routine screening mammogram of both breasts in 1 year.
== END ==
LOC: WWCWWP 12:50
PROVIDERS: ATTEND Obstetrics & Gynecology
DX: Z12.31 Encounter for screening mammogram for malignant neoplasm of breast (principal); Z01.419 Encounter for gynecological examination (general) (routine) without abnormal findings; Z90.710 Acquired absence of both cervix and uterus; Z90.722 Acquired absence of ovaries, bilateral; Z78.0 Asymptomatic menopausal state; Z86.73 Personal history of transient ischemic attack (TIA), and cerebral infarction without residual deficits; E11.9 Type 2 diabetes mellitus without complications; F32.A Depression, unspecified; F41.9 Anxiety disorder, unspecified; I10 Essential (primary) hypertension; Z79.4 Long term (current) use of insulin; Z79.82 Long term (current) use of aspirin; Z88.1 Allergy status to other antibiotic agents; Z91.040 Latex allergy status; Z80.3 Family history of malignant neoplasm of breast; Z88.8 Allergy status to other drugs, medicaments and biological substances
CPT/HCPCS: 77063; 77067

== ENCOUNTER → 2022-09-28 | Outpatient (CLI) | payer MEDICARE, BC ==
--- NOTE | 2022-09-29 21:03 | MM ---
Reason for Exam: Screening (asymptomatic). Last screening mammogram was performed 12 month(s) ago. Patient History: Menarche at age 12. First Full-Term at age 31. Late child-bearing (after 31). Left ovary removed at age 35. Right ovary removed at age 35. Hysterectomy at age 35. Postmenopausal. Patient has history of breast feeding. Estrogen, starting at age 35 for 25 years, 8 months. 03/08/2005, Benign Excisional Biopsy on the right side. 03/09/2006, Benign Core Biopsy on the right side. Maternal cousin had breast cancer, age 64. Paternal aunt had breast cancer, age 80. Risk Values: Riri 5 year model risk: 4.0%. NCI Lifetime model risk: 10.7%. Prior Study Comparison: 05/05/2020 Bilateral Screening Mammogram, [facility]. 05/21/2020 Right Diagnostic Mammogram, [facility]. 09/14/2021 Bilateral Screening Mammogram, [facility]. Tissue Density: The breast tissue is heterogeneously dense. This may lower the sensitivity of mammography. Findings: Analyzed By CAD. Microclip inferior right breast from prior biopsy. Injection port projecting over the right pectoralis on the MLO view. There is no suspicious group of microcalcifications or new suspicious mass in either breast. Overall Assessment: Benign, BI-RAD 2 Management: Screening Mammogram of both breasts in 1 year. See note below in regards to patient's increased 5 year Riri score. Patient should continue monthly self-breast exams. A clinical breast exam by your physician is recommended on an annual basis. This exam should not preclude additional follow-up of suspicious palpable abnormalities. Note on Riri scores and lifetime risk: 1. A Riri score greater than 3% is considered moderate risk. If this is the case, consider specialist referral to assess eligibility for a risk reducing agent. 2. If overall lifetime risk for the development of breast cancer is 20% or higher, the patient may qualify for future screening with alternating mammogram and breast MRI. Electronically signed and approved by: Ange Michaels M.D. Radiologist
== END | disposition home or self-care (01) ==
LOC: RADMAMWWP 15:16
PROVIDERS: ATTEND Family Medicine
DX: Z12.31 Encounter for screening mammogram for malignant neoplasm of breast (principal); Z78.0 Asymptomatic menopausal state; Z80.3 Family history of malignant neoplasm of breast
CPT/HCPCS: 77063; 77067

== ENCOUNTER 2023-07-04 16:50 | Emergency (ER) | payer MEDICARE, BC ==
[2023-07-04 17:10] VITALS: BP 138/73; PULSE 76; RESP 18; TEMP 97.8
--- NOTE | 2023-07-04 18:18 | ED ---
General Adult HPI - General Chief complaint: Extremity Problem,Nontraumatic Stated complaint: R leg pain Time Seen by Provider: 07/04/23 17:52 Source: patient, family, RN notes reviewed Mode of arrival: ambulatory Limitations: no limitations - History of Present Illness Initial comments: Patient is a pleasant 73-year-old female presenting to the emergency department with concern for discomfort of her right leg. No injury. Patient has discomfort mostly behind the right knee. Patient states there may be some mild swelling. No history of trauma. No history of similar symptoms previously. 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 Patient states she used to receive Coagadex for this. - Related Data Home Medications Medication Instructions Recorded Confirmed Acetaminophen-Codeine 300-30mg 1 tab PO Q6HR PRN 05/15/16 09/14/21 [Tylenol w/codeine #3] Ascorbic Acid [Vitamin C] 500 mg PO DAILY 05/15/16 09/14/21 Calcium Carbonate/Vitamin D3 2 tab PO DAILY 05/15/16 09/14/21 [Calcium 500-Vit D3 15 Mcg (600 Iu)] DULoxetine HCL [Cymbalta] 60 mg PO DAILY 05/15/16 02/12/19 Insulin Lispro [humaLOG Kwikpen] 10 unit SQ AC-TID 05/15/16 09/14/21 Multivitamins, Thera [Multivitamin 1 tab PO DAILY 05/15/16 09/14/21 (formulary)] [place]-3 Fatty Acids [[place]-3] 1,000 mg PO DAILY 05/15/16 09/14/21 Aspirin [Adult Low Dose Aspirin EC] 162 mg PO DAILY 10/03/17 09/14/21 Coagadex 1,500 units IV DIRECTED 10/03/17 09/14/21 EPINEPHrine (Auto Inject) [Epipen] 0.3 mg IM ONCE PRN 10/03/17 09/14/21 LORazepam [Ativan] 0.5 mg PO DAILY PRN 10/03/17 09/14/21 Lisinopril-Hctz 20-25 mg 1 tab PO BID 10/03/17 09/14/21 [Zestoretic 20-25] Insulin Glargine,Hum.rec.anlog 50 unit SQ DAILY 09/14/21 09/14/21 [Basaglar Kwikpen U-100] Allergies Allergy/AdvReac Type Severity Reaction Status Date / Time amlodipine besylate Allergy Rash/Hives Verified 09/14/21 12:57 [From Norvasc] erythromycin base Allergy Unknown Verified 09/14/21 12:57 guaifenesin Allergy Unknown Verified 09/14/21 12:57 latex Allergy Rash/Hives Verified 09/14/21 12:57 levofloxacin [From Levaquin] Allergy Unknown Verified 09/14/21 12:57 Review of Systems ROS Statement: Those systems with pertinent positive or pertinent negative responses have been documented in the HPI. ROS Other: All systems not noted in ROS Statement are negative. 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 Hx of CVA December 2016. Hx of Hepatitis C & states cured with Treatment. YUHAAVIATAM- left ear worse. Type 2 diabetes requiring insulin. Chronic knee problems. 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 History of Any Multi-Drug Resistant Organisms: None Reported Past Surgical History: Hysterectomy Additional Past Surgical History / Comment(s): power port. Unilateral oophorectomy. GALEN with (remaining) oophorectomy in 1985. Colonoscopy 2018(3rd, next after 10yrs). Past Anesthesia/Blood Transfusion Reactions: No Reported Reaction, Family History of Problems w/ Anesthesia Additional Past Anesthesia/Blood Transfusion Reaction / Comment(s): SON HAD DIFFICULTY WAKING UP Past Psychological History: Anxiety, Depression Smoking Status: Never smoker Past Alcohol Use History: None Reported Past Drug Use History: None Reported - Past Family History Father Family Medical History: Cancer Additional Family Medical History / Comment(s): LUNG CANCER Mother Family Medical History: Dementia Additional Family Medical History / Comment(s): Paternal and maternal cousins had breast cancer. General Exam Limitations: no limitations General appearance: alert, in no apparent distress Head exam: Present: normocephalic Eye exam: Present: normal appearance Neck exam: Present: normal inspection Respiratory exam: Present: normal lung sounds bilaterally Cardiovascular Exam: Present: regular rate, normal rhythm Expanded Peripheral pulses: 2+: Dorsalis Pedis (R) GI/Abdominal exam: Present: soft. Absent: tenderness Extremities exam: Present: other (Mild swelling right knee with minimal tenderness. Distally the extremity is neurovascular intact). Absent: calf tenderness Neurological exam: Present: alert Psychiatric exam: Present: normal affect, normal mood Skin exam: Present: normal color Course Vital Signs 07/04/23 16:51 Temperature 97.8 F Pulse Rate 76 Respiratory 18 Rate Blood Pressure 138/73 O2 Sat by Pulse 97 Oximetry Medical Decision Making - Medical Decision Making Was pt. sent in by a medical professional or institution (, PA, IN HOME SALES REPRESENTATIVE, urgent care, hospital, or correction...) When possible be specific @ -Patient was advised to come in by her hematology Did you speak to anyone other than the patient for history (EMS, parent, family, police, friend...)? What history was obtained from this source @ -No Did you review nursing and triage notes (agree or disagree)? Why? @ -I reviewed and agree with nursing and triage notes Were old charts reviewed (outside hosp., previous admission, EMS record, old EKG, old radiological studies, urgent care reports/EKG's, correction records)? Report findings @ -Previous labs reviewed Differential Diagnosis (chest pain, altered mental status, abdominal pain women, abdominal pain men, vaginal bleeding, weakness, fever, dyspnea, syncope, headache, dizziness, GI bleed, back pain, seizure, CVA, palpatations, mental health, musculoskeletal)? @ -Differential Musculoskeletal Muscular strain, contusion, ligament sprain, fracture, arthritis, septic a rthritis, bursitis, cellulitis, muscle spasm, nerve compression, DVT, arterial occlusion, herpes zoster, electrolyte abnormality, tumor.... This is not meant to be in all inclusive list EKG interpreted by me (3pts min.). @ -As above X-rays interpreted by me (1pt min.). @ -None done CT interpreted by me (1pt min.). @ -None done U/S interpreted by me (1pt. min.). @ -Ultrasound negative for DVT. Meng's cyst. What testing was considered but not performed or refused? (CT, X-rays, U/S, labs)? Why? @ -None What meds were considered but not given or refused? Why? @ -None Did you discuss the management of the patient with other professionals (professionals i.e. , PA, IN HOME SALES REPRESENTATIVE, lab, RT, psych nurse, social services assistant, tugboat pilot, teacher, weapons officer naval activity, telehealth case manager)? Give summary @ -Case was discussed with Dr. Mccloud from [facility] hematology who is comfortable with discharge of patient without further treatment. She recommends patient return to her previous dosing of Coagadex. Patient was updated regarding this. Was smoking cessation discussed for >3mins.? @ -No Was critical care preformed (if so, how long)? @ -No Were there social determinants of health that impacted care today? How? (Homelessness, low income, unemployed, alcoholism, drug addiction, transportation, low edu. Level, literacy, decrease access to med. care, fpc, rehab)? @ -No Was there de-escalation of care discussed even if they declined (Discuss DNR or withdrawal of care, Hospice)? DNR status @ -No What co-morbidities impacted this encounter? (DM, HTN, Smoking, COPD, CAD, Cancer, CVA, ARF, Chemo, Hep., AIDS, mental health diagnosis, sleep apnea, morbid obesity)? @ -None Was patient admitted / discharged? Hospital course, mention meds given and route, prescriptions, significant lab abnormalities, going to OR and other pertinent info. @ -Patient reevaluated and updated. Patient will be discharged. Patient states she does have a follow-up appointment with her doctor tomorrow. Undiagnosed new problem with uncertain prognosis? @ -No Drug Therapy requiring intensive monitoring for toxicity (Heparin, Nitro, Insulin, Cardizem)? @ -No Were any procedures done? @ -No Diagnosis/symptom? @ -Meng's cyst Acute, or Chronic, or Acute on Chronic? @ -Acute Uncomplicated (without systemic symptoms) or Complicated (systemic symptoms)? @ -Default Side effects of treatment? @ -No Exacerbation, Progression, or Severe Exacerbation? @ -No Poses a threat to life or bodily function? How? (Chest pain, [place], [place], pneumonia, PE, COPD, DKA, ARF, appy, cholecystitis, CVA, Diverticulitis, Homicidal, S uicidal, threat to staff... and all critical care pts) @ -No Disposition Clinical Impression: Bakers cyst Disposition: HOME SELF-CARE Condition: Stable Instructions (If sedation given, give patient instructions): Meng Cyst (ED) Additional Instructions: Please do follow-up with primary care physician in the next day or 2 for recheck. Please follow-up with your fuel efficient aircraft designer tomorrow as scheduled. Return for increased pain, swelling, worsening or changing symptoms or other concerns. Is patient prescribed a controlled substance at d/c from ED?: No Referrals: Gilbert Trivedi MD [Primary Care Provider] - 1-2 days Time of Disposition: 19:10
--- NOTE | 2023-07-04 18:56 | US ---
EXAMINATION TYPE: US venous doppler duplex LE RT DATE OF EXAM: 07/04/2023 6:28 PM COMPARISON: NONE CLINICAL INDICATION: Female, 73 years old with history of Pain and swelling; Pain in swelling in righ t calf x 1 week. SIDE PERFORMED: Right TECHNIQUE: The lower extremity deep venous system is examined utilizing real time linear array sonog rose with graded compression, doppler sonography and color-flow sonography. VESSELS IMAGED: Common Femoral Vein Deep Femoral Vein Greater Saphenous Vein * Femoral Vein Popliteal Vein Small Saphenous Vein * Proximal Calf Veins (* superficial vessels) Right Leg: Echoes seen in the SSV or a superficial vein behind the knee. The vein appeared to be tor tuous. Meng's cyst seen measuring 3.2 x 2.1 x 0.9cm IMPRESSION: 1. No evidence for deep vein tendinosis. 2. Superficial thrombophlebitis of a superficial vein in the posterior knee. 3. Meng's cyst.
== END 2023-07-04 19:20 | disposition home or self-care (01) ==
LOC: EC 16:50
DX: M71.21 Synovial cyst of popliteal space [Baker], right knee (principal); E11.9 Type 2 diabetes mellitus without complications; I10 Essential (primary) hypertension; F32.A Depression, unspecified; F41.9 Anxiety disorder, unspecified; Z79.4 Long term (current) use of insulin; Z79.82 Long term (current) use of aspirin; Z79.899 Other long term (current) drug therapy; Z88.1 Allergy status to other antibiotic agents; Z91.040 Latex allergy status; Z88.8 Allergy status to other drugs, medicaments and biological substances; Z86.73 Personal history of transient ischemic attack (TIA), and cerebral infarction without residual deficits
CPT/HCPCS: 99284

== ENCOUNTER → 2023-10-31 | Outpatient (CLI) | payer MEDICARE, BC, OTHER ==
--- NOTE | 2023-10-31 15:45 | BD ---
EXAMINATION TYPE: Axial Bone Density DATE OF EXAM: 10/31/2023 CLINICAL HISTORY: 73 years old Female. ICD-10 CODE: Z78.0 Asymptomatic menopausal state Height: 60.4 Weight: 146 FRAX RISK QUESTIONS: Secondary Osteoporosis: yes 3. Menopause before 45: yes, total hyst at 33 5. Chronic liver disease: hx of hep c RISK FACTORS HISTORY OF: diabetes, hep c, hypertension, ht loss, MEDICATIONS: bp meds, calcium, vit d, cymbalta ativan, insulin 2 types, cholesterol meds, EXAM MEASUREMENTS: Bone mineral densitometry was performed using the [employer] System. Bone mineral density as measured about the Lumbar spine is: ----- L1-L4(G/cm2): 1.184 T Score Values are as follows: ----- L1: -0.8 ----- L2: 0.4 ----- L3: -0.5 ----- L4: 0.6 ----- L1-L4: 0.0 Z Score Values are as follows: ----- L1: 0.9 ----- L2: 2.1 ----- L3: 1.2 ----- L4: 2.3 ----- L1-L4: 1.7 Bone mineral density has: Increased 0.2% since study of: 05.27.2021 Bone mineral density about the R hip (g/cm2): 1.057 Bone mineral density about the L hip (g/cm2): 1.103 T Score values are as follows: -----R Neck: -0.4 -----L Neck: 0.1 -----R Total: 0.4 -----L Total: 0.8 Z Score values are as follows: -----R Neck: 1.4 -----L Neck: 1.9 -----R Total: 2.0 -----L Total: 2.3 Bone mineral density has: Increased 0.7% since study of: 05.27.2021 FRAX%s: The graph provided illustrates a 7.9% chance for a major osteoporotic fx and a 0.7% chance fo r the hips probability for fx in 10 years time. IMPRESSION: Normal (Values between +1 and -1 indicate normal bone mass). Consider repeating this study in 5 year s or sooner if there is some new clinical indication. NOTE: T-SCORE=SD OF THE YOUNG ADULT MEAN.
--- NOTE | 2023-11-01 08:12 | MM ---
Reason for Exam: Screening (asymptomatic). Last mammogram was performed 1 year(s) and 1 month(s) ago. Patient History: Menarche at age 12. First Full-Term at age 31. Late child-bearing (after 31). Left ovary removed at age 35. Right ovary removed at age 35. Hysterectomy at age 35. Postmenopausal. Patient has history of breast feeding. Estrogen, starting at age 35 for 25 years, 8 months. 03/08/2005, Benign Excisional Biopsy on the right side. 03/09/2006, Benign Core Biopsy on the right side. Maternal cousin had breast cancer, age 64. Paternal aunt had breast cancer, age 80. Risk Values: Riri 5 year model risk: 4.0%. NCI Lifetime model risk: 10.1%. Prior Study Comparison: 05/21/2020 Right Diagnostic Mammogram, [facility]. 09/14/2021 Bilateral Screening Mammogram, [facility]. 09/28/2022 Bilateral MG 3D screening mammo w/cad, [facility]. Tissue Density: The breasts are heterogeneously dense, which may obscure small masses. Findings: Analyzed By CAD. There is no suspicious group of microcalcifications or new suspicious mass in either breast. Overall Assessment: Benign, BI-RAD 2 Management: Screening Mammogram of both breasts in 1 year. . Patient should continue monthly self-breast exams. A clinical breast exam by your physician is recommended on an annual basis. This exam should not preclude additional follow-up of suspicious palpable abnormalities. Note on Riri scores and lifetime risk: 1. A Riri score greater than 3% is considered moderate risk. If this is the case, consider specialist referral to assess eligibility for a risk reducing agent. 2. If overall lifetime risk for the development of breast cancer is 20% or higher, the patient may qualify for future screening with alternating mammogram and breast MRI. Electronically signed and approved by: Nathan Paulino M.D. Radiologis
== END | disposition home or self-care (01) ==
LOC: RADMAMWWP 12:59
PROVIDERS: ATTEND Family Medicine
DX: Z12.31 Encounter for screening mammogram for malignant neoplasm of breast (principal); Z78.0 Asymptomatic menopausal state; R92.333 Mammographic heterogeneous density, bilateral breasts; Z80.3 Family history of malignant neoplasm of breast; E11.9 Type 2 diabetes mellitus without complications; I10 Essential (primary) hypertension; M85.88 Other specified disorders of bone density and structure, other site
CPT/HCPCS: 77063; 77067; 77080